=== PATIENT | female | born 1940 | race Caucasian/White ===

== ENCOUNTER 2017-04-28 07:36 | Inpatient (IN) | payer MEDICARE, OTHER ==
[2017-04-28 08:08] LABS: #Basophils 0.1 thou/uL (0.0-0.2); #Lymphocytes 1.9 thou/uL (1.20-3.40); #Monocytes 0.5 thou/uL (0.11-0.59); #Neutrophils 5.1 thou/uL (1.40-6.50); %Basophils 0.8 % (0.0-1.0); %Eosinophils 0.5 % (0.0-10.0); %Lymphocytes 25.5 % (21.0-51.0); %Monocytes 6.3 % (0.0-10.0); Hematocrit 33.2 % (36.0-47.0); Mean Platelet Volume 6.8 fL (7.4-10.4); Red Blood Cell (RBC) Count 3.57 mill/uL (4.20-5.40); White Blood Cell (WBC) Count 7.6 thou/uL (4.8-10.8)
[2017-04-28 08:24] LABS: PTT 31.4 SEC (22.9-36.1); Prothrombin Time 14.9 SEC (12.0-14.7)
[2017-04-28 08:28] LABS: ALT (SGPT) 25 U/L (8-55); AST (SGOT) 30 U/L (5-34); Alkaline Phosphatase 97 U/L (40-150); Anion Gap 16 mmol/L (10-20); BUN (Urea Nitrogen) 11 mg/dL (9.8-20.1); Bilirubin, Total 0.4 mg/dL (0.2-1.2); CK (CPK) 27 U/L (29-168); Calc. Creatinine Clearance 0 mL/min (70-130); Calcium 8.8 mg/dL (7.8-10.44); Carbon Dioxide 20 mmol/L (23-31); Chloride 100 mmol/L (98-107); Estimated GFR-MDRD 82; Globulin 4.1 g/dL (2.4-3.5); Protein, Total 7.1 g/dL (6.0-8.3)
[2017-04-28 08:33] LABS: Troponin I 0.011 ng/mL (< 0.028)
--- NOTE | 2017-04-28 08:54 | RAD ---
CHEST 1 VIEW: Date: 04/28/17 HISTORY: Chest pain. COMPARISON: 12/09/16. FINDINGS: Cardiac silhouette is magnified by projection. Pulmonary vasculature is slightly engorged. Patchy bi basilar infiltrates have increased since the previous exam. Mediastinum is midline with a dual lead left subclavian cardiac electronic device in place. There is no evidence of pneumothorax. IMPRESSION: Mild pulmonary vascular congestion. POS: [facility]
--- NOTE | 2017-04-28 09:24 | CT ---
CT ARTERIOGRAM CHEST WITH IV CONTRAST AND 3D MIP IMAGING: HISTORY: Dyspnea. Chest pain. FINDINGS: There is good contrast opacification of the pulmonary arteries. The thoracic aorta is not yet opacif ied. There is normal branching of the great vessels at the aortic arch. Dilatation of the ascending aorta measures up to 5.0 cm in greatest diameter. There is a small amount of bilateral pleural flui d, left greater than right, and minimal pericardial fluid. Atelectasis is present at the left lung b ase. There is calcification throughout the arterial structures. IMPRESSION: 1. No CT evidence of pulmonary embolus. 2. Ectasia of the ascending aorta. 3. Bilateral pleural effusions. 4. Minimal pericardial effusion. 5. Atherosclerosis. POS: [facility]
[2017-04-28 09:35] LABS: Bilirubin Negative (Negative); Blood, Urine Moderate (Negative); Glucose, Urine (Dipstick) Negative (Negative); Ketone, Urine Negative (Negative); Nitrite Negative (Negative); Protein, Urine (Dipstick) Trace mg/dL (Neg-Trace)
[2017-04-28 09:42] LABS: Bacteria/HPF 1+ HPF (None Seen); Hyaline Casts/LPF 0-3 HYALINE CAST LPF (0-3 Hyaline)
[2017-04-28] MEDS ORDERED: cefTRIAXone\\ROCEPHIN 500 MG VIAL ONE (10:23)
[2017-04-28] MEDS ORDERED: Nitroglycerin 0.4 MG TAB (25 Tab Bottle) ONE (10:43)
[2017-04-28] MEDS ORDERED: Furosemide 40 MG/4 ML VIAL ONE (11:17)
[2017-04-28] MEDS ORDERED: Zolpidem Tartrate 5 MG TAB PO PRN (12:08)
[2017-04-28] MEDS ORDERED: Loperamide HCl 2 MG CAP PO PRN (12:08)
[2017-04-28] MEDS ORDERED: Senokot 8.6 MG TAB PO PRN (12:08)
[2017-04-28] MEDS ORDERED: Acetaminophen 325 MG TAB PO PRN (12:08)
[2017-04-28] MEDS ORDERED: Ondansetron HCl/PF 4 MG/2 ML Vial IVP PRN (12:08)
[2017-04-28] MEDS ORDERED: Mag-Al 1200 mg/1200 mg/30 ML UDCUP PO PRN (12:08)
[2017-04-28] MEDS ORDERED: Ondansetron ODT 4 MG TAB PO PRN (12:08)
[2017-04-28] MEDS ORDERED: Milk Of Magnesia 30 ML UDCUP PO PRN (12:08)
[2017-04-28] MEDS ORDERED: cloNIDine 0.1 MG TAB PO PRN (12:11)
[2017-04-28] MEDS ORDERED: Eucerin (Mineral Oil/Petrolatum,White) 30 gm Jar TOP PRN (12:11)
[2017-04-28] MEDS ORDERED: hydrALAZINE 20 MG/ML VIAL SLOW IVP PRN (12:11)
[2017-04-28] MEDS ORDERED: Labetalol HCl 100 MG/20 ML VIAL SLOW IVP PRN (12:11)
[2017-04-28] MEDS ORDERED: Sodium Chloride 0.65% Nasal 44 ML BOT EA NARE PRN (12:11)
[2017-04-28] MEDS ORDERED: Diabetic Tussin 200 MG/10 ML UDCUP PO PRN (12:11)
[2017-04-28 12:19] LABS: Troponin I 0.016 ng/mL (< 0.028)
[2017-04-28] MEDS ORDERED: ISOVUE-370 76%-LOCM 1 ML ONE (13:15)
--- NOTE | 2017-04-28 14:33 | HP ---
PRIMARY CARE PHYSICIAN: Brandon Villarreal D.O. REASON FOR ADMISSION: Mild CHF chest discomfort and dyspnea. HISTORY OF PRESENT ILLNESS: A 76-year-old female who presented to emergency room with complaint of dyspnea on exertion. Patient also has orthopnea. Patient reports that since Monday she is exper iencing dyspnea on exertion. After walking short distance, she gets out of breath. She has edema i n both lower extremities which is gradually getting worse for the last 2 weeks. Patient reports eliud t she had a stress test done in 11/2016 and she had pacemaker procedure in 08/2016. Patient's physi becca capacity has been reduced since then. Patient denies any fever, chills, or cough. She denies a ny lower extremity calf tenderness. She denies any nausea, vomiting, diaphoresis. Her chest discom fort is pretty much very vague, but she attributes to be due to dyspnea with tightness and there is no radiation. There is no relation of chest discomfort with food, respiration or activity. This patient came to the emergency room today and she was hypertensive. She had CT angio which was negative for pulmonary embolism, but it showed bilateral pleural effusion and minimal pericardial ef fusion. Her BNP was also elevated. At this point, we are admitting this patient for mild CHF exace rbation. REVIEW OF SYSTEMS: The following complete review of systems was negative, unless otherwise mentione d in the HPI or below: Constitutional: Weight loss or gain, ability to conduct usual activities. Skin: Rash, itching. Eyes: Double vision, pain. ENT/Mouth: Nose bleeding, neck stiffness, pain, tenderness. Cardiovascular: Palpitations, dyspnea on exertion, orthopnea. Respiratory: Shortness of breath, wheezing, cough, hemoptysis, fever or night sweats. Gastrointestinal: Poor appetite, abdominal pain, heartburn, nausea, vomiting, constipation, or diar liss. Genitourinary: Urgency, frequency, dysuria, nocturia. Musculoskeletal: Pain, swelling. Neurologic/Psychiatric: Anxiety, depression. Allergy/Immunologic: Skin rash, bleeding tendency. Please see my HPI for pertinent positive and negative. All other review of systems reviewed and neg ative except as mentioned in the HPI. PAST MEDICAL HISTORY: Hypertension, history of third-degree AV block required pacemaker procedure i n 08/2016, and physical deconditioning. PAST SURGICAL HISTORY: Left foot surgery for heel spur, tubal ligation, pacemaker procedure. PAST PSYCHIATRIC HISTORY: History of anxiety and depression, but not on specific treatment. FAMILY HISTORY: Positive for hypertension and diabetes among several family members, positive for h eart disease and stroke among several family members. SOCIAL HISTORY: Patient lives at home. She quit smoking in 2003. She denies any alcohol or other illicit drug abuse. Currently, she lives at [facility]. ALLERGIES: No known drug allergies. CURRENT HOME MEDICATIONS: The patient does not have any medication with her at this point, but base d on our previous discharge summary, the patient is on following medications: Aspirin 81 mg p.o. da tiffanie, vitamin D3 1000 units p.o. daily, lisinopril 10 mg p.o. daily. EMERGENCY ROOM COURSE: Patient was given nitro patch 1 inch, Lasix 40 mg, nitroglycerin 0.4 mg subl ingual, Rocephin 1 g, aspirin 324 mg, IV fluids 500 mL PHYSICAL EXAMINATION: VITAL SIGNS: On arrival, blood pressure variable and maximum of 202/90, pulse 60, respiratory rate 30, temperature 98.4, saturation 95% on room air, weight 99.7 kilograms. GENERAL: Patient is currently alert, awake, hypertensive. No obvious acute distress. HEAD: Normocephalic, atraumatic. EYES: Pupils round, reactive to light. Extraocular muscles intact. ENT: Oropharynx within normal limits. Moist mucous membranes. No oral lesions. No pharyngeal william thema, no exudate. NECK: Supple. Range of motion is normal. No meningeal signs of irritation. LUNGS: Bibasilar few rales noted. Air entry reduced. No wheezing, no rhonchi. No accessory muscl es of respiration in use. CARDIAC: S1 and S2 appears regular. No significant murmur elicited, no gallop, no rub. Pacemaker site is clean and healthy. ABDOMEN: Soft, obesity present, bowel sounds present, nontender, nondistended. No organomegaly, no suprapubic tenderness. BACK: Examination unremarkable, no CVA tenderness. EXTREMITIES: Upper extremity passive movements of all joints are normal. Lower extremity bilateral trace pitting edema noted. Good peripheral pulsation. SKIN: No skin rash. HEMATOLOGICAL SYSTEM: No lymphadenopathy. PSYCHIATRIC: Normal affect. IMAGING AND SIGNIFICANT LABORATORY DATA: 1. EKG showing pacemaker rhythm, nonspecific ST-T changes. 2. CT angio negative for pulmonary embolism, but consistent with bilateral pleural effusion, mild p ericardial effusion, atherosclerosis. 3. CBC: WBC 7.6, hemoglobin 10.4, platelet 1375. INR 1.2. 4. BMP: Sodium 132, potassium 3.7, chloride 100, carbon dioxide 20, BUN 11, creatinine 0.67, gluco se 112, calcium 8.8, magnesium 1.8. 5. LFT: AST 30, ALT 25, alkaline phosphatase 97, albumin 3.0. CK 27, CK-MB 0.6, troponin I 0.011. BNP 792.3. TSH 1.61. 6. Urinalysis consistent with urinary tract infection, though patient does not have any UTI symptom s. 7. Chest x-ray showing pulmonary vascular congestion. ASSESSMENT AND PLAN/IMPRESSION: 1. Acute on chronic diastolic congestive heart failure. This patient has classic history of conges tive heart failure. She has increasing dyspnea on exertion, orthopnea, and bilateral lower extremit y edema along with bilateral small pleural effusion and pericardial effusion with basilar rales and elevated BNP. This patient had echocardiography early this year, which showed EF 55%. Patient does have moderate aortic regurgitation. At this point, suspecting diastolic heart failure. We will no t repeat echocardiography at this time. We will continue to treat with Lasix 40 mg IV b.i.d. We wi ll control underlying blood pressure. We will monitor input/output chart and electrolytes and repla ce accordingly. 2. Chest discomfort. We will do serial cardiac enzymes x3 to rule out acute coronary syndrome, but patient's clinical presentation is not consistent with acute coronary syndrome. 3. Hypertensive urgency. We will continue the nitro patch q.8 hourly, Lasix 40 mg IV b.i.d. and we will also consider using hydralazine, clonidine, and labetalol p.r.n. basis. We will also continue her lisinopril 10 mg p.o. daily. 4. Asymptomatic urinary tract infection. We will continue with Cipro 500 mg p.o. b.i.d. Urine cul tures sent from the emergency room and we will follow up on culture result. 5. Anemia, normocytic, normochromic. We will continue with ferrous sulfate 325 mg p.o. daily and m ultivitamin 1 tablet p.o. daily. 6. Physical deconditioning. We will consult physical therapy evaluation while in hospital. 7. Deep venous thrombosis prophylaxis not needed because we are expecting discharge in 24 hours. 8. Gastrointestinal prophylaxis, Pepcid 20 mg p.o. b.i.d. 9. Code status: The patient is FULL CODE. Patient does not have any surrogate decision maker. DISPOSITION AND PLAN: Based on clinical course.
[2017-04-28 15:49] LABS: Troponin I 0.025 ng/mL (< 0.028)
[2017-04-28] MEDS: Nitroglycerin 2% Ointment 1 INCH/1 GM Packet TOP SCH ×2 (17:49→21:10)
[2017-04-28] MEDS: Furosemide 40 MG/4 ML VIAL SLOW IVP SCH (17:50)
--- NOTE | 2017-04-28 19:52 | CON ---
DATE OF CONSULTATION: 04/28/2017 HISTORY OF PRESENT ILLNESS: The patient is a 76-year-old woman who presents with increasing dyspnea. The patient was seen initially in 08/2016. The patient was in third degree AV block. She had an emergent cardiac pacemaker placed. She was found to have a normally fraction of 55%. The patient presents with increasing dyspnea. She states several days ago she started feeling short of breath. She also noted having mild lower extremity edema. The patient denied having any chest discomfort. PAST MEDICAL HISTORY: 1. Third degree AV block. 2. Hypertension. 3. Status post pacemaker placement. PAST SURGICAL HISTORY: Foot surgery and tubal ligation. SOCIAL HISTORY: She is a nonsmoker. ALLERGIES: No known drug allergies. FAMILY HISTORY: Positive strong family history of coronary artery disease. MEDICATIONS ON ADMISSION: Lisinopril 10 daily, Decadron 4 daily, aspirin 1 tablet daily. REVIEW OF SYSTEMS: Ten-point system noticeable for pain in her left leg. PHYSICAL EXAMINATION: GENERAL: This is an obese woman in no acute distress. VITAL SIGNS: Blood pressure 189/82. NECK: Full. LUNGS: Crackles in both bases. HEART: Regular rate and rhythm, normal S1, S2. ABDOMEN: Nondistended. EXTREMITIES: Showed moderate bilateral edema. SKIN: Warm and dry. NEUROLOGIC: Nonfocal. VASCULAR: Radial pulses are 2+. LABORATORY RESULTS: Sodium is 132, potassium 3.7, chloride 100, bicarbonate 20 , BUN 11, creatinine 0.69, glucose 112. Troponin was 0.016. Her EKG revealed atrial fibrillation with electronic ventricular pacemaker. Interrogation of the pacemaker revealed paroxysmal atrial fibrillation. White blood cell count 7.6, hemoglobin 10.4, hematocrit 33.2 and her platelets were 375. BNP was 792. IMPRESSION: 1. Chest pain, acute, new onset, probably diastolic. 2. Paroxysmal atrial fibrillation. 3. History of pacemaker placement. 4. Dilated aortic root. This patient presents with new onset atrial fibrillation, congestive heart failure. With congestive heart failure, I would recommend that she be placed on Betapace to try to maintain sinus rhythm. The patient will need long-term anticoagulation therapy. She has a markedly elevated CHADS-VAS score. We will follow this patient with you through her hospitalization. PLAN: 1. Start low-dose Betapace. 2. Start Lovenox 1 mg per kilograms subcu b.i.d. 3. Increase lisinopril. MTDD
[2017-04-28] MEDS ORDERED: Ciprofloxacin 500 MG TAB PO SCH (20:00)
[2017-04-28] MEDS ORDERED: Famotidine 20 MG TAB PO SCH (21:00)
[2017-04-28] MEDS: HYDROcodone/Acetaminophen 5/325 mg Tablet PO PRN (21:08)
[2017-04-28] MEDS: Lisinopril 10 MG TAB PO SCH (21:09)
[2017-04-28] MEDS: Sotalol HCl 80 MG TAB PO SCH (21:09)
[2017-04-28] MEDS: Enoxaparin Sodium 100 MG/ML SYRINGE SC SCH (21:10)
[2017-04-29] MEDS: Furosemide 40 MG/4 ML VIAL SLOW IVP SCH ×2 (05:14→13:24)
[2017-04-29] MEDS: Nitroglycerin 2% Ointment 1 INCH/1 GM Packet TOP SCH ×3 (05:14→20:20)
[2017-04-29 05:33] LABS: #Eosinphils 0.1 thou/uL (0.0-0.7); #Lymphocytes 1.5 thou/uL (1.20-3.40); #Monocytes 0.4 thou/uL (0.11-0.59); #Neutrophils 3.9 thou/uL (1.40-6.50); %Basophils 0.1 % (0.0-1.0); %Eosinophils 2.5 % (0.0-10.0); %Lymphocytes 24.6 % (21.0-51.0); %Monocytes 7.2 % (0.0-10.0); Hematocrit 32.5 % (36.0-47.0); Mean Platelet Volume 6.3 fL (7.4-10.4); Red Blood Cell (RBC) Count 3.52 mill/uL (4.20-5.40)
[2017-04-29 05:44] LABS: Anion Gap 9 mmol/L (10-20); BUN (Urea Nitrogen) 12 mg/dL (9.8-20.1); Calc. Creatinine Clearance 101 mL/min (70-130); Calcium 8.5 mg/dL (7.8-10.44); Carbon Dioxide 29 mmol/L (23-31); Chloride 101 mmol/L (98-107); Estimated GFR-MDRD 81; Uric Acid 7.1 mg/dL (2.6-6.0)
[2017-04-29] MEDS ORDERED: Lisinopril 10 MG TAB PO SCH (09:00)
[2017-04-29] MEDS ORDERED: Aspirin 325 MG TAB PO SCH (09:00)
[2017-04-29] MEDS ORDERED: Potassium Chloride 20 MEQ TAB PO SCH (09:30)
[2017-04-29] MEDS: Multivitamin W/ Minerals 1 TAB PO SCH (10:31)
[2017-04-29] MEDS: Sotalol HCl 80 MG TAB PO SCH ×2 (10:32→20:19)
[2017-04-29] MEDS: Ferrous Sulfate 325 MG TAB PO SCH (10:32)
[2017-04-29] MEDS: Lisinopril 10 MG TAB PO SCH ×2 (10:32→20:19)
[2017-04-29] MEDS: Enoxaparin Sodium 100 MG/ML SYRINGE SC SCH ×2 (10:33→20:20)
--- NOTE | 2017-04-29 11:24 | PDOC.PN ---
- Subjective Encounter Start Date: 04/29/17 Encounter Start Time: 07:30 -: old records requested/rev Patient seen and examined. No new complaints. No overnight events, feels better , less dyspnea - Objective MAR Reviewed: Yes Vital Signs & Weight: Vital Signs (12 hours) Temp Pulse Resp BP Pulse Ox 04/29/17 10:32 87 04/29/17 08:35 98 F 87 20 163/72 H 95 04/29/17 04:01 98 04/29/17 04:00 98.2 F 88 16 137/65 97 04/29/17 00:00 98.9 F 63 16 120/58 L 98 Weight Weight 213 lb I&O: 04/28/17 04/29/17 04/30/17 06:59 06:59 05:59 Intake Total 360 Output Total 750 Balance -390 Result Diagrams: 04/29/17 05:12 04/29/17 05:12 Radiology Reviewed by me: Yes EKG Reviewed by me: Yes Phys Exam - Physical Examination Constitutional: NAD HEENT: PERRLA, moist MMs, sclera anicteric Neck: no JVD, supple Respiratory: no wheezing, no rhonchi reduced air entry at base Cardiovascular: RRR, no significant murmur, no rub Gastrointestinal: soft, non-tender, no distention, positive bowel sounds Musculoskeletal: pulses present, edema present improving edema Neurological: non-focal, normal sensation Lymphatic: no nodes Psychiatric: normal affect, A&O x 3 Skin: no rash, normal turgor Dx/Plan (1) Acute on chronic diastolic (congestive) heart failure Code(s): I50.33 - ACUTE ON CHRONIC DIASTOLIC (CONGESTIVE) HEART FAILURE Status : Acute (2) Chest pain Code(s): R07.9 - CHEST PAIN, UNSPECIFIED Status: Acute (3) Physical deconditioning Code(s): R53.81 - OTHER MALAISE Status: Acute (4) UTI (urinary tract infection) Status: Acute (5) Obesity (BMI 30.0-34.9) Code(s): E66.9 - OBESITY, UNSPECIFIED Status: Chronic (6) Pacemaker Code(s): Z95.0 - PRESENCE OF CARDIAC PACEMAKER Status: Chronic (7) Paroxysmal atrial fibrillation Code(s): I48.0 - PAROXYSMAL ATRIAL FIBRILLATION Status: Chronic (8) HTN (hypertension) Code(s): I10 - ESSENTIAL (PRIMARY) HYPERTENSION Status: Chronic (9) History of CVA (cerebrovascular accident) Code(s): Z86.73 - PRSNL HX OF TIA (TIA), AND CEREB INFRC W/O RESID DEFICITS Status: Chronic - Plan cont current plan of care, continue antibiotics * echo done and result pending * continue lovenox * continue diuresis * continue po cipro * medication reviewed as below * symptomatic treatment * monitor labs. Review of Systems - Review of Systems Constitutional: negative: Fever, Chills, Sweats, Weakness, Malaise, Other Eyes: negative: Pain, Vision Change, Conjunctivae Inflammation, Eyelid Inflammation, Redness, Other ENT: negative: Ear Pain, Ear Discharge, Nose Pain, Nose Discharge, Nose Congestion, Mouth Pain, Mouth Swelling, Throat Pain, Throat Swelling, Other Respiratory: Shortness of Breath, SOB with Excertion. negative: Cough, Dry, Hemoptysis, Pleuritic Pain, Sputum, Wheezing Cardiovascular: negative: Chest Pain, Palpitations, Orthopnea, Paroxysmal Noc. Dyspnea, Edema, Light Headedness, Other Gastrointestinal: negative: Nausea, Vomiting, Abdominal Pain, Diarrhea, Constipation, Melena, Hematochezia, Other Genitourinary: negative: Dysuria, Frequency, Incontinence, Hematuria, Retention , Other Musculoskeletal: negative: Neck Pain, Shoulder Pain, Arm Pain, Back Pain, Hand Pain, Leg Pain, Foot Pain, Other - Medications/Allergies Allergies/Adverse Reactions: Allergies Allergy/AdvReac Type Severity Reaction Status Date / Time No Known Allergies Allergy Verified 12/09/16 16:04 Medications: Current Medications Acetaminophen (Tylenol) 650 mg PO Q4H PRN PRN Reason: Headache/Fever or Pain Hydrocodone Bitart/Acetaminophen ([place] 5/325) 1 tab PO Q4H PRN PRN Reason: Moderate Pain (4-6) Last Admin: 04/28/17 21:08 Dose: 1 tab Al Hydroxide/Mg Hydroxide (Maalox) 30 ml PO Q6H PRN PRN Reason: Heartburn or Indigestion Aspirin (Aspirin Chewable) 81 mg PO DAILY [facility] Last Admin: 04/29/17 10:32 Dose: 81 mg Clonidine (Catapres) 0.1 mg PO Q4H PRN PRN Reason: Systolic BP > 180 Last Admin: 04/28/17 17:47 Dose: 0.1 mg Enoxaparin Sodium (Lovenox) 95 mg SC 0900,2100 [facility] Last Admin: 04/29/17 10:33 Dose: 95 mg Ferrous Sulfate (Feosol) 325 mg PO QAM-[facility] Last Admin: 04/29/17 10:32 Dose: 325 mg Furosemide (Lasix) 40 mg SLOW IVP 0600,1400 [facility] Last Admin: 04/29/17 05:14 Dose: 40 mg Guaifenesin (Robitussin Sf) 200 mg PO Q4H PRN PRN Reason: Cough Hydralazine HCl (Apresoline) 10 mg SLOW IVP Q4H PRN PRN Reason: Systolic BP > 180 Iron/Minerals/Multivitamins (Theragran M) 1 tab PO DAILY [facility] Last Admin: 04/29/17 10:31 Dose: 1 tab Labetalol HCl (Normodyne) 20 mg SLOW IVP Q4H PRN PRN Reason: Systolic BP > 180 Lisinopril (Zestril) 10 mg PO BID [facility] Last Admin: 04/29/17 10:32 Dose: 10 mg Loperamide HCl (Imodium) 2 mg PO PRN PRN PRN Reason: Diarrhea/Loose Stools Magnesium Hydroxide (Milk Of Magnesium) 30 ml PO DAILYPRN PRN PRN Reason: Constipation Mineral Oil/White Petrolatum (Eucerin Cream) 0 gm TOP BIDPRN PRN PRN Reason: Dry Skin Nitroglycerin (Nitro-Bid 2% Ointment) 0.5 inch TOP Q8HR [facility] Last Admin: 04/29/17 05:14 Dose: 0.5 inch Ondansetron HCl (Zofran Odt) 4 mg PO Q6H PRN PRN Reason: Nausea/Vomiting Ondansetron HCl (Zofran) 4 mg IVP Q6H PRN PRN Reason: Nausea/Vomiting Potassium Chloride (K-Dur) 20 meq PO BID-[facility] Potassium Chloride (K-Dur) 20 meq PO NOW [facility] Stop: 04/29/17 11:30 Last Admin: 04/29/17 10:30 Dose: 20 meq Senna (Senokot) 2 tab PO HSPRN PRN PRN Reason: Constipation Sodium Chloride ([place] Nasal [place] 0.65%) 0 ml EA NARE QIDPRN PRN PRN Reason: Nasal Congestion Sotalol HCl (Betapace) 80 mg PO BID [facility] Last Admin: 04/29/17 10:32 Dose: 80 mg Zolpidem Tartrate (Ambien) 5 mg PO HSPRN PRN PRN Reason: Insomnia
[2017-04-29] MEDS: Potassium Chloride 20 MEQ TAB PO SCH (16:46)
[2017-04-29 18:21] VITALS: BMI 33.2
[2017-04-29] MEDS: HYDROcodone/Acetaminophen 5/325 mg Tablet PO PRN (20:18)
[2017-04-30] MEDS: HYDROcodone/Acetaminophen 5/325 mg Tablet PO PRN ×2 (01:13→20:36)
[2017-04-30] MEDS ORDERED: ADENOSINE 60 MG/20 ML VIAL ONE (01:49)
[2017-04-30] MEDS: Furosemide 40 MG/4 ML VIAL SLOW IVP SCH ×2 (06:01→13:59)
[2017-04-30] MEDS: Nitroglycerin 2% Ointment 1 INCH/1 GM Packet TOP SCH ×3 (06:01→20:37)
--- NOTE | 2017-04-30 09:54 | PDOC.PN ---
- Subjective Encounter Start Date: 04/30/17 Encounter Start Time: 09:15 Patient seen and examined. No new complaints. No overnight events - Objective MAR Reviewed: Yes Vital Signs & Weight: Vital Signs (12 hours) Temp Pulse Resp BP Pulse Ox 04/30/17 04:54 97.7 F 64 20 127/61 97 04/30/17 04:07 95 04/30/17 04:00 97.7 F 64 16 127/61 97 04/30/17 00:00 97.4 F L 85 18 130/60 95 Weight Admit Weight 214 lb Weight 207 lb 4.8 oz I&O: 04/29/17 04/30/17 05/01/17 07:59 06:59 06:59 Intake Total Output Total Balance Result Diagrams: 04/29/17 05:12 04/29/17 05:12 Radiology Reviewed by me: Yes (echo ) EKG Reviewed by me: Yes Phys Exam - Physical Examination Constitutional: NAD HEENT: PERRLA, moist MMs, sclera anicteric Neck: no JVD, supple Respiratory: no wheezing, no rales, no rhonchi Cardiovascular: RRR, no significant murmur, no rub Gastrointestinal: soft, non-tender, no distention, positive bowel sounds Musculoskeletal: no edema, pulses present Neurological: non-focal, normal sensation Lymphatic: no nodes Psychiatric: normal affect Skin: no rash, normal turgor Dx/Plan (1) Acute on chronic diastolic (congestive) heart failure Code(s): I50.33 - ACUTE ON CHRONIC DIASTOLIC (CONGESTIVE) HEART FAILURE Status : Acute (2) Chest pain Code(s): R07.9 - CHEST PAIN, UNSPECIFIED Status: Acute (3) Physical deconditioning Code(s): R53.81 - OTHER MALAISE Status: Acute (4) UTI (urinary tract infection) Status: Acute (5) Obesity (BMI 30.0-34.9) Code(s): E66.9 - OBESITY, UNSPECIFIED Status: Chronic (6) Pacemaker Code(s): Z95.0 - PRESENCE OF CARDIAC PACEMAKER Status: Chronic (7) Paroxysmal atrial fibrillation Code(s): I48.0 - PAROXYSMAL ATRIAL FIBRILLATION Status: Chronic (8) HTN (hypertension) Code(s): I10 - ESSENTIAL (PRIMARY) HYPERTENSION Status: Chronic (9) History of CVA (cerebrovascular accident) Code(s): Z86.73 - PRSNL HX OF TIA (TIA), AND CEREB INFRC W/O RESID DEFICITS Status: Chronic - Plan cont current plan of care, continue antibiotics * continue lovenox * today plan for stress test * continue oral cipro for UTI * medication reviewed as below * symptomatic treatment * will plan for discharge tomorrow if stable. * continue diuresis Review of Systems - Review of Systems ENT: negative: Ear Pain, Ear Discharge, Nose Pain, Nose Discharge, Nose Congestion, Mouth Pain, Mouth Swelling, Throat Pain, Throat Swelling, Other Respiratory: negative: Cough, Dry, Shortness of Breath, Hemoptysis, SOB with Excertion, Pleuritic Pain, Sputum, Wheezing Cardiovascular: negative: Chest Pain, Palpitations, Orthopnea, Paroxysmal Noc. Dyspnea, Edema, Light Headedness, Other Gastrointestinal: negative: Nausea, Vomiting, Abdominal Pain, Diarrhea, Constipation, Melena, Hematochezia, Other Genitourinary: negative: Dysuria, Frequency, Incontinence, Hematuria, Retention , Other Musculoskeletal: negative: Neck Pain, Shoulder Pain, Arm Pain, Back Pain, Hand Pain, Leg Pain, Foot Pain, Other Skin: negative: Rash, Lesions, Evaristo, Bruising, Other - Medications/Allergies Allergies/Adverse Reactions: Allergies Allergy/AdvReac Type Severity Reaction Status Date / Time No Known Allergies Allergy Verified 12/09/16 16:04 Medications: Current Medications Acetaminophen (Tylenol) 650 mg PO Q4H PRN PRN Reason: Headache/Fever or Pain Hydrocodone Bitart/Acetaminophen ([place] 5/325) 1 tab PO Q4H PRN PRN Reason: Moderate Pain (4-6) Last Admin: 04/30/17 01:13 CDT Dose: 1 tab Al Hydroxide/Mg Hydroxide (Maalox) 30 ml PO Q6H PRN PRN Reason: Heartburn or Indigestion Aspirin (Aspirin Chewable) 81 mg PO DAILY [facility] Last Admin: 04/29/17 10:32 Dose: 81 mg Clonidine (Catapres) 0.1 mg PO Q4H PRN PRN Reason: Systolic BP > 180 Last Admin: 04/28/17 17:47 Dose: 0.1 mg Enoxaparin Sodium (Lovenox) 95 mg SC 0900,2100 [facility] Last Admin: 04/29/17 20:20 Dose: 95 mg Ferrous Sulfate (Feosol) 325 mg PO QAM-[facility] Last Admin: 04/29/17 10:32 Dose: 325 mg Furosemide (Lasix) 40 mg SLOW IVP 0600,1400 [facility] Last Admin: 04/30/17 06:01 Dose: 40 mg Guaifenesin (Robitussin Sf) 200 mg PO Q4H PRN PRN Reason: Cough Hydralazine HCl (Apresoline) 10 mg SLOW IVP Q4H PRN PRN Reason: Systolic BP > 180 Iron/Minerals/Multivitamins (Theragran M) 1 tab PO DAILY [facility] Last Admin: 04/29/17 10:31 Dose: 1 tab Labetalol HCl (Normodyne) 20 mg SLOW IVP Q4H PRN PRN Reason: Systolic BP > 180 Lisinopril (Zestril) 10 mg PO BID [facility] Last Admin: 04/29/17 20:19 Dose: 10 mg Loperamide HCl (Imodium) 2 mg PO PRN PRN PRN Reason: Diarrhea/Loose Stools Magnesium Hydroxide (Milk Of Magnesium) 30 ml PO DAILYPRN PRN PRN Reason: Constipation Mineral Oil/White Petrolatum (Eucerin Cream) 0 gm TOP BIDPRN PRN PRN Reason: Dry Skin Nitroglycerin (Nitro-Bid 2% Ointment) 0.5 inch TOP Q8HR [facility] Last Admin: 04/30/17 06:01 Dose: Not Given Ondansetron HCl (Zofran Odt) 4 mg PO Q6H PRN PRN Reason: Nausea/Vomiting Ondansetron HCl (Zofran) 4 mg IVP Q6H PRN PRN Reason: Nausea/Vomiting Potassium Chloride (K-Dur) 20 meq PO BID-[facility] Last Admin: 04/29/17 16:46 Dose: 20 meq Senna (Senokot) 2 tab PO HSPRN PRN PRN Reason: Constipation Sodium Chloride ([place] Nasal [place] 0.65%) 0 ml EA NARE QIDPRN PRN PRN Reason: Nasal Congestion Sotalol HCl (Betapace) 80 mg PO BID [facility] Last Admin: 04/29/17 20:19 Dose: 80 mg Zolpidem Tartrate (Ambien) 5 mg PO HSPRN PRN PRN Reason: Insomnia
[2017-04-30] MEDS ORDERED: Ciprofloxacin 500 MG TAB PO SCH (10:15)
[2017-04-30] MEDS: Ferrous Sulfate 325 MG TAB PO SCH (10:53)
[2017-04-30] MEDS: Potassium Chloride 20 MEQ TAB PO SCH ×2 (10:54→16:38)
[2017-04-30] MEDS: Sotalol HCl 80 MG TAB PO SCH ×2 (10:54→20:38)
[2017-04-30] MEDS: Enoxaparin Sodium 100 MG/ML SYRINGE SC SCH (10:57)
[2017-04-30] MEDS: Lisinopril 10 MG TAB PO SCH ×2 (10:57→20:38)
[2017-04-30] MEDS: Multivitamin W/ Minerals 1 TAB PO SCH (10:57)
--- NOTE | 2017-04-30 13:58 | NM ---
MYOCARDIAL PERFUSION STUDY: HISTORY: 04/30/17 HISTORY: CHF. Post pacemaker insertion. Hypertension. RADIOPHARMACEUTICALS: 31.1 mCi technetium-99m sestamibi, IV at stress. 28.2 mCi technetium-99m sestamibi, IV at rest. FINDINGS: There is a very small area of mild diminished uptake of radiotracer seen within the ventricular apex with suggestion of reversibility on resting images. No additional significant reversible defect is id entified. Quantitative analysis shows no significant reversible defect within the ventricular apex. G ated images demonstrate normal ventricular wall thickening, but there is mild hypokinesis involving t he ventricular septum with dyskinesis involving the distal anteroseptal wall. The calculated left francine tricular ejection fraction is at the lower limits of normal with a LVEF of 53%. IMPRESSION: 1. Equivocal myocardial perfusion study for a very small area of ischemia seen within the ventricula r apex, but this may be related to motion artifact and shifting soft tissue attenuation between the r esting and stress acquisitions as there does appear to be motion artifact. No additional area of reve rsibility is seen to suggest ischemia. 2. Mild hypokinesis involving the septum with mild dyskinesis involving the distal anteroseptal wall . 3. Low normal LVEF of 53%. POS: [facility]
[2017-04-30] MEDS ORDERED: Cipro 250 MG TAB PO SCH (20:00)
[2017-04-30] MEDS: Ciprofloxacin 500 MG TAB PO SCH (20:38)
[2017-04-30] MEDS ORDERED: Enoxaparin Sodium 100 MG/ML SYRINGE SC SCH (21:00)
[2017-05-01] MEDS ORDERED: Iopamidol 370 76% 100 ML VIAL ONE ×2 (00:12→14:05)
[2017-05-01] MEDS: HYDROcodone/Acetaminophen 5/325 mg Tablet PO PRN ×2 (04:22→09:20)
[2017-05-01] MEDS: Nitroglycerin 2% Ointment 1 INCH/1 GM Packet TOP SCH ×2 (04:24→15:00)
[2017-05-01] MEDS: Furosemide 40 MG/4 ML VIAL SLOW IVP SCH ×2 (04:24→15:00)
[2017-05-01] MEDS: Ciprofloxacin 500 MG TAB PO SCH (04:24)
[2017-05-01] MEDS ORDERED: Communication Order-Pharmacy FS SCH (08:15)
--- NOTE | 2017-05-01 08:36 | PRG ---
DATE OF SERVICE: 05/01/2017 HISTORY OF PRESENT ILLNESS: Ms. Ramires is feeling better. She presented with congestive heart fail ure. She also had atrial fibrillation which is felt to be new onset. She was placed on Betapace ov er the weekend. PHYSICAL EXAMINATION: VITAL SIGNS: Blood pressure 137/58, pulse 72, temperature 98.2. LUNGS: Clear to auscultation. CARDIAC: Irregular, irregular. ABDOMEN: Soft, nontender, nondistended. EXTREMITIES: No edema. Telemetry monitoring shows paced rhythm. IMPRESSION: 1. Atrial fibrillation. 2. Shortness of breath. 3. Status post pacemaker placement. RECOMMENDATIONS: Ms. Ramires did have an equivocal stress study suggesting ischemia in a small area. At this point, would like to proceed with coronary angiography. This may help delineate treatment options for antiarrhythmic therapy. There is a risk of torsades on Betapace. I would not like to commit her to amiodarone therapy. Would like to assess her coronary anatomy. I discussed coronary angiography in full detail with Ms. Ramires. Risks included, but are not limited to the following: , stroke, MT, need for emergency surgery, loss of limb, bleeding, and infection, as well as a reaction to the dye causing kidney failure and needing long-term dialysis. I also discussed the ris ks of PCI to include all of the above including coronary dissection and perforation in addition to a cute stent thrombosis and restenosis. All questions about the procedure were answered. Given the a magnus, the patient agreed to proceed with coronary angiography and possible PCI. All questions were answered. We will proceed with a bare metal stent if needed given her need for a nticoagulation therapy.
[2017-05-01] MEDS ORDERED: Nitroglycerin 0.4 MG TAB (25 Tab Bottle) SL PRN (08:49)
[2017-05-01] MEDS ORDERED: traMADol HCl 50 MG TAB PO PRN (08:49)
[2017-05-01] MEDS ORDERED: Acetaminophen/Codeine 30-300mg Tablet PO PRN ×2 (08:49)
[2017-05-01] MEDS ORDERED: Sodium Chloride 0.9% 200 ML IV SCH (09:00)
[2017-05-01] MEDS ORDERED: Sodium Chloride 0.9% 1,000 ML IV SCH (09:00)
[2017-05-01] MEDS ORDERED: Flecainide 50 MG TAB PO SCH (09:00)
[2017-05-01] MEDS: Ferrous Sulfate 325 MG TAB PO SCH (09:22)
[2017-05-01] MEDS: Lisinopril 10 MG TAB PO SCH (09:23)
[2017-05-01] MEDS: Potassium Chloride 20 MEQ TAB PO SCH (09:23)
[2017-05-01] MEDS: Multivitamin W/ Minerals 1 TAB PO SCH (09:24)
[2017-05-01 12:22] VITALS: BP 136/65; TEMP 97.9
--- NOTE | 2017-05-01 13:22 | DIS ---
DATE OF ADMISSION: 04/28/2017 DATE OF DISCHARGE: 05/01/2017 PRIMARY CARE PHYSICIAN: Dr. Brandon Villarreal. DISCHARGE DISPOSITION: Home. PRIMARY DISCHARGE DIAGNOSES: 1. Acute on chronic diastolic congestive heart failure. 2. New onset paroxysmal atrial fibrillation. 3. Status post cardiac catheterization. SECONDARY DISCHARGE DIAGNOSES: Hypertension, history of CVA, paroxysmal atrial fibrillation, pacema ker, obesity with BMI 32, moderate mitral regurgitation, urinary tract infection, physical deconditi oning. PRIMARY PROCEDURE/OPERATION: Cardiac catheterization. RADIOLOGICAL INVESTIGATION: CT angio showed bilateral pleural effusion and no evidence of pulmonary embolism. Chest x-ray showed pulmonary vascular congestion, stress test suspected for reversibilit y ischemia in apex. Echocardiography showed diastolic dysfunction and moderate mitral regurgitation . Cardiac catheterization was unremarkable. SIGNIFICANT LABS: Hemoglobin 10.3, INR 1.2, creatinine 0.70. Cardiac enzymes negative. BNP 792.3, TSH 1.61. Urinalysis suggestive of UTI. Blood culture negative. DISCHARGE MEDICATIONS: Eliquis 5 mg p.o. b.i.d., aspirin 81 mg p.o. daily, vitamin D3 1000 units p. o. daily, Cipro 500 mg p.o. b.i.d. for 5 days, ferrous sulfate 325 mg p.o. daily, flecainide 50 mg p .o. b.i.d., lisinopril 10 mg p.o. b.i.d., multivitamin 1 tablet p.o. daily. CONTRAINDICATIONS: None. CODE STATUS: FULL CODE. INPATIENT CONSULTANTS: Dr. Mendoza and Dr. Ramon were following while in hospital. TEST RESULTS PENDING ON DISCHARGE: None. ALLERGIES: No known drug allergy. DISCHARGE PLAN: Post hospital, the patient will follow up with Dr. Brandon Villarreal and the patient will follow up with Dr. Mendoza on 05/09/2017 at 9:15 a.m. Patient will follow up with Heart Failure [facility]oval amaro. HOSPITAL COURSE: A 76-year-old female with above-mentioned medical problem who was admitted by me. Please see my HPI for further details. The patient was having increasing shortness of breath. Her chest x-ray was showing pulmonary vascular congestion. Her CT angio was showing bilateral pleural effusion. She was also complaining of chest pain, but she did not have any pulmonary embolism. Her cardiac enzymes were negative. In the emergency room, she had 1 episode of atrial fibrillation. T he patient was admitted to telemetry floor. Dr. Ramon was following while in hospital. Patient' s status was inpatient on admission. The patient was treated with IV Lasix while in hospital. Her blood pressure medication was adjusted as above. The patient underwent stress test that was positive for reversible ischemia at apex. Th e patient subsequently underwent cardiac catheterization and cardiac angiography was unremarkable. Echocardiography confirmed diastolic dysfunction with moderate mitral regurgitation. Necessary heart failure education given to the patient. Dietary education given. The patient is no w euvolemic. The patient is advised to take Lasix 20 mg p.o. daily. The patient also had asymptomatic urinary tract infection, which was treated with ciprofloxacin whil e in hospital. On discharge, we changed to Eliquis therapy. While in hospital, she was given Loven ox. The patient is also given Tambocor on discharge. The patient is seen and examined at bedside today. Plan of care [facility] with the [facility] I spoke with Dr. Mendoza and he also cleared her for discharge. PHYSICAL EXAMINATION: The patient is seen and examined at bedside today. VITAL SIGNS: Currently, temperature 97.9, pulse 67, respiratory rate 18, saturation 98%, blood pres sure 136/65, weight 207 pounds. GENERAL: The patient is currently alert, awake, in no acute distress. HEAD: Normocephalic, atraumatic. LUNGS: Clear. CARDIAC: S1, S2 regular without any murmur. ABDOMEN: Soft, benign. EXTREMITIES: No edema. Catheter cardiac catheter site is clear. Distal pulsation is intact. NEUROLOGIC: Nonfocal examination. All new medication prescriptions sent to her pharmacy. The patient is medically stable for discharg e today. Total time spent on discharge day more than 30 minutes.
[2017-05-01] MEDS ORDERED: Apixaban 5 MG TAB PO SCH (21:00)
--- NOTE | 2017-06-16 10:01 | STRESS ---
Acquisition Time: 2017-04-30 08:47:47 Total Exercise Time: 00:04:00 Test Indications: CHEST PAIN Medications: Protocol: ADENOSINE Max HR: 100 BPM 70% of Pred: 142 BPM Max BP: 142/064 mmHG Max Work Load: 1.0 METS THE PATIENT WAS INJECTED WITH ADENOSINE. SHE DID NOT DEVELOP CHEST PAIN. THE PATIENT WAS IN A PACED RHYTHM. AWAIT NUCLEAR IMAGES FOR DEFINITIVE DIAGNOSIS. Confirmed by TAVON TOURE ([id number]), non linear editor SALVADOR GARCIA ([id number]) on 06/16/2017 10:01:17 AM Referred By: MD Remigio TOURE Confirmed By:TAVON TOURE
--- NOTE | 2017-06-24 10:39 | EKG ---
Test Reason : CP Blood Pressure : / mmHG Vent. Rate : 060 BPM Atrial Rate : 061 BPM P-R Int : 000 ms QRS Dur : 158 ms QT Int : 510 ms P-R-T Axes : 000 -62 099 degrees QTc Int : 510 ms Electronic ventricular pacemaker Confirmed by LUBNA CAMPBELL M.D. ([id number]), editorial assistant DEAN MATHIAS ([id number]) on 06/24/2017 10:39:02 AM Referred By: Confirmed By:LUBNA CAMPBELL M.D.
--- NOTE | 2017-06-24 10:39 | EKG ---
Test Reason : Blood Pressure : / mmHG Vent. Rate : 085 BPM Atrial Rate : 100 BPM P-R Int : 000 ms QRS Dur : 158 ms QT Int : 422 ms P-R-T Axes : 000 -57 099 degrees QTc Int : 502 ms Electronic ventricular pacemaker Confirmed by LUBNA CAMPBELL M.D. ([id number]), senior technical editor DEAN MATHIAS ([id number]) on 06/24/2017 10:38:57 AM Referred By: Confirmed By:LUBNA CAMPBELL M.D.
== END 2017-05-01 15:33 | disposition home or self-care (01) | DRG 287 ==
LOC: ERS 07:36 → ERHOLD 10:40 → 2NO 13:50 → OBSVTOIN 20:35
PROVIDERS: ADMIT Internal Medicine; ATTEND Internal Medicine
PROC: 4A023N7 Measurement of Cardiac Sampling and Pressure, Left Heart, Percutaneous Approach (ICD-10-PCS; principal; 2017-05-01)
PROC: B2111ZZ Fluoroscopy of Multiple Coronary Arteries using Low Osmolar Contrast (ICD-10-PCS; 2017-05-01)
PROC: B2151ZZ Fluoroscopy of Left Heart using Low Osmolar Contrast (ICD-10-PCS; 2017-05-01)
DX: I11.0 Hypertensive heart disease with heart failure (principal); I31.3 Pericardial effusion (noninflammatory); N39.0 Urinary tract infection, site not specified; Z87.891 Personal history of nicotine dependence; Z98.51 Tubal ligation status; Z95.0 Presence of cardiac pacemaker; I50.33 Acute on chronic diastolic (congestive) heart failure; I16.0 Hypertensive urgency; Z86.73 Personal history of transient ischemic attack (TIA), and cerebral infarction without residual deficits; I08.0 Rheumatic disorders of both mitral and aortic valves; D64.9 Anemia, unspecified; I48.0 Paroxysmal atrial fibrillation; E66.9 Obesity, unspecified; Z68.32 Body mass index [BMI] 32.0-32.9, adult; I77.819 Aortic ectasia, unspecified site
CPT/HCPCS: 36415; 71010; 71275; 76942; 78452; 80048; 80053; 81003; 81015; 82553; 83735; 83880; 84443; 84484; 84550; 85025; 85610; 85730; 87040; 93005; 93017; 93306; 93458; 93798; 96361; 96374; 96375; A4216; A9500; C1760; C1769; G8978-GP-CI; G8979-GP-CI; G8980-GP-CI; J0153; J0696; J1644; J1650; J1940

== ENCOUNTER 2018-08-20 14:12 | Observation (INO) | payer MEDICARE, OTHER ==
[2018-08-20 14:54] LABS: #Eosinphils 0.1 thou/uL (0.0-0.7); #Monocytes 0.7 thou/uL (0.11-0.59); %Basophils 0.1 % (0.0-1.0); %Eosinophils 0.3 % (0.0-10.0); %Lymphocytes 5.3 % (21.0-51.0); %Monocytes 3.9 % (0.0-10.0); %Neutrophils 90.4 % (42.0-75.0); Hemoglobin 12.6 g/dL (12.0-16.0); Mean Corpuscular HGB CONC 32.3 g/dL (32.0-36.0); Mean Corpuscular Hemoglobin 32.2 pg (27.0-31.0); Mean Corpuscular Volume 99.8 fL (78.0-98.0); Mean Platelet Volume 6.1 fL (7.4-10.4); Platelet Count 299 thou/uL (130-400); RBC Distribution Width 12.6 % (11.5-14.5); Red Blood Cell (RBC) Count 3.91 mill/uL (4.20-5.40); White Blood Cell (WBC) Count 18.8 thou/uL (4.8-10.8)
--- NOTE | 2018-08-20 15:05 | RAD ---
CHEST 1 VIEW: Date: 08/20/18 INDICATION: Syncope. COMPARISON: Prior exam dated 05/25/17. FINDINGS: There is stable mild cardiomegaly and dual lead pacemaker. Chronic lung changes are stable. No acute air space opacity, pleural effusion, or pneumothorax is evident. IMPRESSION: No acute abnormality. POS: [facility]
[2018-08-20 15:10] LABS: ALT (SGPT) Less than 7 U/L (8-55); AST (SGOT) 11 U/L (5-34); Albumin 3.7 g/dL (3.4-4.8); Alkaline Phosphatase 91 U/L (40-150); Anion Gap 16 mmol/L (10-20); BUN (Urea Nitrogen) 14 mg/dL (9.8-20.1); Bilirubin, Total 0.2 mg/dL (0.2-1.2); Calc. Creatinine Clearance 0 mL/min (70-130); Calcium 9.2 mg/dL (7.8-10.44); Carbon Dioxide 23 mmol/L (23-31); Chloride 97 mmol/L (98-107); Estimated GFR-MDRD 66; Globulin 3.4 g/dL (2.4-3.5); Glucose 142 mg/dL (83-110); Potassium 5.3 mmol/L (3.5-5.1); Protein, Total 7.1 g/dL (6.0-8.3); Sodium 131 mmol/L (136-145)
--- NOTE | 2018-08-20 15:36 | CT ---
HEAD CT NONCONTRAST: Date: 08/20/18 COMPARISON: 12/08/16. INDICATION: Syncope. FINDINGS: There is mild global atrophy. Mild chronic ischemic disease of cerebral white matter is present. Ther e is no intracranial hemorrhage, mass effect, midline shift, or ventriculomegaly. IMPRESSION: No acute intracranial abnormalities. POS: [facility]
[2018-08-20] MEDS ORDERED: Guaifenesin DM 100-10/5 ML UDCUP PO PRN (17:57)
[2018-08-20] MEDS ORDERED: Senokot S 8.6-50 MG TAB PO PRN (17:57)
[2018-08-20] MEDS ORDERED: Ondansetron PF 4 MG/2 ML Vial IVP PRN (17:57)
[2018-08-20] MEDS ORDERED: Acetaminophen 650 MG Suppository PR PRN (17:57)
[2018-08-20] MEDS ORDERED: Ondansetron ODT 4 MG TAB PO PRN (17:57)
[2018-08-20 19:47] VITALS: BMI 31.4
[2018-08-20] MEDS: Flecainide 50 MG TAB PO SCH (21:10)
[2018-08-20] MEDS: Aspirin Chewable 81 MG TAB PO SCH (21:11)
[2018-08-20] MEDS: Famotidine 20 MG TAB PO SCH (21:11)
[2018-08-20] MEDS: Apixaban 5 MG TAB PO SCH (21:11)
[2018-08-20] MEDS: Docusate 100 MG CAP PO SCH (21:11)
[2018-08-20] MEDS ORDERED: Lisinopril 20 MG TAB PO SCH (21:15)
[2018-08-20] MEDS: Lisinopril 20 MG TAB PO SCH (21:20)
[2018-08-20] MEDS: Acetaminophen 325 MG TAB PO PRN (22:48)
[2018-08-20 23:15] LABS: Bilirubin Negative (Negative); Blood, Urine Small (Negative); Clarity CLEAR (Clear); Glucose, Urine (Dipstick) Negative (Negative); Leukocyte Moderate (Negative); Nitrite Negative (Negative); Protein, Urine (Dipstick) Negative (Neg-Trace); Specific Gravity, Urine 1.012 (1.002-1.036)
[2018-08-20 23:17] LABS: Bacteria/HPF None Seen HPF (None Seen); Hyaline Casts/LPF 0-3 HYALINE CAST LPF (0-3 Hyaline)
--- NOTE | 2018-08-21 00:10 | HP ---
PRIMARY CARE PHYSICIAN: Brandon Villarreal DO CHIEF COMPLAINT: Syncope. HISTORY OF PRESENT ILLNESS: This is a 77-year-old white female with a past medical history of atrial fibrillation and heart block with pacemaker. She lives at [facility], was playing cards with some of her friends there. She suddenly felt dizzy while she was sitting there, was not under any stress or excited about anything at that time and then passed out. She does not remember anything until the ambulance got there and they were moving her into the ambulance when she came back to. She came back immediately, has not had any confusion since, no focal neurologic signs either. She has never had this happen before. She has been feeling normal up until the syncopal episode. PAST MEDICAL HISTORY: 1. Hypertension. 2. History of third-degree AV block, requiring pacemaker. 3. Paroxysmal atrial fibrillation, on Eliquis. 4. Diastolic congestive heart failure. PAST SURGICAL HISTORY: 1. Left foot surgery for heel spur. 2. Tubal ligation. 3. Pacemaker placement. PAST PSYCHIATRIC HISTORY: 1. Anxiety. 2. Depression. SOCIAL HISTORY: The patient lives at [place] at [facility] and she quit smoking in 2003. No alcohol or illicit drug use. FAMILY HISTORY: Positive for hypertension, diabetes, heart disease, and stroke. ALLERGIES: NO KNOWN DRUG ALLERGIES. CURRENT MEDICATIONS: 1. Lasix uncertain dose. 2. Eliquis 5 mg twice a day. 3. Lisinopril 20 mg daily. REVIEW OF SYSTEMS: CONSTITUTIONAL: No fevers. She did have a few episodes of chills about 2 weeks ago while she was lying down for a nap, but it has not repeated since then. EYES: No double vision or blurred vision. ENT: No congestion, drainage, or sore throat. CARDIOVASCULAR: No chest pain. No palpitations or racing heart. PULMONARY: No coughing, wheezing, or shortness of breath. GASTROINTESTINAL: No abdominal pain. No nausea or vomiting. No diarrhea. She does have chronic constipation. GENITOURINARY: No dysuria or hematuria. MUSCULOSKELETAL: She has chronic left lower extremity pain in her thigh and knee and some chronic swelling in the left lower leg more than the right ever since her congestive heart failure diagnosis a couple of years ago. SKIN: No rashes or other lesions she has noted. NEUROLOGIC: No numbness, tingling, or focal weakness. She had a syncopal episode as per the HPI. PHYSICAL EXAMINATION: VITAL SIGNS: Blood pressure 113/56, pulse 86, respirations 17, temperature 97.8, and O2 saturation 96% on room air. GENERAL: This is a well-developed, well-nourished white female, in no acute distress. HEENT: Pupils are equal, round, and reactive to light. Oropharynx clear without lesions, erythema, or exudate. NECK: Supple. No lymphadenopathy. No thyroid nodules or enlargement. No JVD. HEART: Regular rate and rhythm. No murmurs, rubs, or gallops. LUNGS: Clear to auscultation bilaterally. No wheezes, crackles, or rhonchi. ABDOMEN: Soft, nontender to palpation. Normoactive bowel sounds. No hepatosplenomegaly or other masses. EXTREMITIES: No clubbing, cyanosis, or edema. SKIN: No rashes or other lesions noted. NEUROLOGIC: The patient has intact strength and sensation in all extremities. She has no facial droop. She has good coordination. PSYCHIATRIC: Alert and oriented x3. Normal mood and affect. LABORATORY DATA: White blood cell count elevated at 18,000 and 90% neutrophils. The rest of the CBC was normal. Complete metabolic panel notable for sodium of 131, potassium of 5.3, chloride of 97, and glucose of 142. Her brain issue peptide was 195. Troponin was negative x1. CT of the brain done in the emergency room shows no acute intracranial abnormalities. Chest x-ray, I did review the chest x-ray in the emergency room along with the radiologist's report, there is stable cardiomegaly and dual lead pacemaker. No acute abnormalities noted. ASSESSMENT: 1. Syncope. Symptoms are consistent with cardiogenic syncope with the sudden onset of dizziness followed by the syncope without any preceding Valsalva maneuvers, eating or defecation. She was also not standing at that times. It does not sound orthostatic. We will have [employer] evaluate her pacemaker and will consult Dr. Ramon, who will put the patient on potline monitor and observe overnight. If she does well overnight, has normal telemetry monitoring, and her pacemaker interrogation is negative, she can probably discharge home tomorrow. 2. Leukocytosis. The patient does not have any symptoms of infection. We will get a urinalysis to make sure she does not have underlying urinary tract infection. We will hold any antibiotics for now. We will recheck in the morning. 3. Elevated potassium without any known source. She is not on any potassium per her med list. I will recheck this as well in the morning. We will continue her Lasix for now at 40 mg twice a day, which is what she was on the last time when she was in the hospital. 4. Paroxysmal atrial fibrillation, currently in paced rhythm. We will continue the patient's Eliquis and watch her on the monitor. 5. Hypertension. We will resume the patient's home lisinopril. 6. Gastrointestinal prophylaxis. We will put the patient on Pepcid twice a day. 7. Deep venous thrombosis prophylaxis. Continue the patient's Eliquis. CODE STATUS: I did discuss with the patient she is a do not attempt resuscitation. Should she be incapacitated, her niece to be her medical decision maker, her name is Nelly Corea. Job ID: [id number]
[2018-08-21 05:50] LABS: #Eosinphils 0.1 thou/uL (0.0-0.7); #Lymphocytes 1.7 thou/uL (1.20-3.40); #Monocytes 0.5 thou/uL (0.11-0.59); #Neutrophils 4.4 thou/uL (1.40-6.50); %Basophils 0.6 % (0.0-1.0); %Eosinophils 1.4 % (0.0-10.0); %Lymphocytes 25.5 % (21.0-51.0); %Monocytes 6.8 % (0.0-10.0); %Neutrophils 65.8 % (42.0-75.0); Hemoglobin 11.8 g/dL (12.0-16.0); Mean Corpuscular HGB CONC 32.3 g/dL (32.0-36.0); Mean Corpuscular Volume 99.1 fL (78.0-98.0); Mean Platelet Volume 6.7 fL (7.4-10.4); Platelet Count 277 thou/uL (130-400); RBC Distribution Width 12.6 % (11.5-14.5); Red Blood Cell (RBC) Count 3.69 mill/uL (4.20-5.40); White Blood Cell (WBC) Count 6.7 thou/uL (4.8-10.8)
[2018-08-21 05:54] LABS: Anion Gap 12 mmol/L (10-20); BUN (Urea Nitrogen) 11 mg/dL (9.8-20.1); Calc. Creatinine Clearance 94 mL/min (70-130); Calcium 9.2 mg/dL (7.8-10.44); Carbon Dioxide 23 mmol/L (23-31); Chloride 101 mmol/L (98-107); Estimated GFR-MDRD 81; Glucose 74 mg/dL (83-110); Potassium 4.5 mmol/L (3.5-5.1); Sodium 131 mmol/L (136-145)
[2018-08-21] MEDS: Furosemide 40 MG TAB PO SCH ×2 (06:40→15:18)
[2018-08-21] MEDS ORDERED: Furosemide 40 MG TAB PO SCH (09:00)
[2018-08-21] MEDS ORDERED: Lisinopril 20 MG TAB PO SCH (09:00)
[2018-08-21] MEDS: Famotidine 20 MG TAB PO SCH ×2 (09:22→20:27)
[2018-08-21] MEDS: Multivitamin W/ Minerals 1 TAB PO SCH (09:22)
[2018-08-21] MEDS: Flecainide 50 MG TAB PO SCH ×2 (09:22→20:27)
[2018-08-21] MEDS: Apixaban 5 MG TAB PO SCH ×2 (09:22→20:27)
[2018-08-21] MEDS: Docusate 100 MG CAP PO SCH ×2 (09:22→20:27)
[2018-08-21] MEDS: Acetaminophen 325 MG TAB PO PRN ×2 (10:45→23:12)
--- NOTE | 2018-08-21 15:58 | CON ---
DATE OF CONSULTATION: REASON FOR CONSULTATION: Syncope. HISTORY OF PRESENT ILLNESS: Ms. Ramires is a 77-year-old woman, who recently had a syncopal episode. She states she had no predisposing factors. She was playing cards and passed out. Next thing she knows she was waking up in the ambulance. No chest pain or pressure, shortness of breath, or other associated symptoms. Previous echo dated 04/2017 with LVEF 50% to 55%. Mild to moderate aortic insufficiency present. PAST MEDICAL HISTORY: Status post pacemaker for sick sinus syndrome and atrial fibrillation. ALLERGIES: NONE. HOME MEDICATIONS: Include; 1. Vitamin D3. 2. Aspirin. 3. Centrum Silver. 4. Lasix. 5. Eliquis. 6. Lisinopril. 7. Flecainide. REVIEW OF SYSTEMS: As above. PHYSICAL EXAMINATION: VITAL SIGNS: Blood pressure 111/58, pulse 96, and temperature 97.6. GENERAL: Patient is a pleasant female, who is in no acute distress. The patient appears their stated age. NEUROLOGIC: The patient is alert and oriented x3 with no focal neurologic deficits. HEENT: Sclerae without icterus. Mouth has moist mucous membranes with normal pallor. NECK: No JVD. Carotid upstroke brisk. No bruits bilaterally. LUNGS: Clear to auscultation with unlabored respirations. BACK: No scoliosis or kyphosis. CARDIAC: Regular rate and rhythm with normal S1 and S2. No S3 or S4 noted. No significant rubs, murmurs, thrills, or gallops noted throughout the precordium. PMI is not displaced. There is no parasternal heave. ABDOMEN: Soft, nontender, nondistended. No peritoneal signs present. No hepatosplenomegaly. No abnormal striae. EXTREMITIES: 2+ femoral and 2+ dorsalis pedis pulses. No cyanosis, clubbing, or edema. SKIN: No gross abnormalities. PERTINENT LABORATORY DATA: Hemoglobin 11.8. Creatinine 0.7. Pacemaker interrogated and reviewed by myself showed no significant dysrhythmia is present and normal functioning pacemaker. IMPRESSION: 1. Syncope. 2. Atrial fibrillation. RECOMMENDATIONS: From the CV standpoint, there is no clear etiology to her syncopal episode. Her LVEF has been stable in the past. We would recommend repeating her echo. Her pacemaker appears stable. I would seek a noncardiac cause. Did discuss the case with Dr. Matthew Mckeon, if her LVEF appears normal from a CV standpoint, will be okay from my standpoint to discharge home. Job ID: [id number]
--- NOTE | 2018-08-21 16:03 | PDOC.PN ---
- Subjective Encounter Start Date: 08/21/18 Encounter Start Time: 11:30 Ms. Ramires was seen today in follow-up of syncopal episode. She does not have any complaints this morning and says she feels " fine". - Objective Resuscitation Status - Order Detail: 08/20/18 17:51 Resuscitation Status Routine Resuscitation Status: DNAR: NO Resuscitation Discussed with: Patient MAR Reviewed: Yes Vital Signs & Weight: Vital Signs (12 hours) Temp Pulse Resp BP BP BP Pulse Ox 08/21/18 11:19 97.6 F 96 16 111/58 L 98 08/21/18 07:08 97.7 F 96 16 126/66 124/64 124/63 97 Weight Weight 200 lb 8 oz I&O: 08/20/18 08/21/18 08/22/18 06:59 06:59 06:59 Intake Total 300 Output Total 1250 Balance -950 Result Diagrams: 08/21/18 04:48 08/21/18 04:48 Phys Exam - Physical Examination HEENT: PERRLA Respiratory: no wheezing, no rales, no rhonchi, clear to auscultation bilateral Cardiovascular: RRR, no significant murmur, no rub Gastrointestinal: soft, non-tender, no distention, positive bowel sounds Musculoskeletal: pulses present, edema present + swelling in the left upper thigh Neurological: non-focal Dx/Plan (1) Syncope Code(s): R55 - SYNCOPE AND COLLAPSE Status: Acute (2) Chronic diastolic heart failure Code(s): I50.32 - CHRONIC DIASTOLIC (CONGESTIVE) HEART FAILURE Status: Chronic (3) HTN (hypertension) Code(s): I10 - ESSENTIAL (PRIMARY) HYPERTENSION Status: Chronic (4) Pacemaker Code(s): Z95.0 - PRESENCE OF CARDIAC PACEMAKER Status: Chronic (5) Paroxysmal atrial fibrillation Code(s): I48.0 - PAROXYSMAL ATRIAL FIBRILLATION Status: Chronic - Plan * Syncope- ? etiology- Cardiology recommendations were noted- will follow-up with Echo results * Left leg swelling- the patient tells me this has been present every since she had the pacemaker placed about a year ago. there is now redness or warmth to the area. * PAF- her heart rate is stable * HTN- blood pressure is stable * Chronic diastolic heart failure- compensated
[2018-08-21] MEDS: Lisinopril 20 MG TAB PO SCH (20:27)
[2018-08-21] MEDS: Aspirin Chewable 81 MG TAB PO SCH (20:27)
[2018-08-22] MEDS: Docusate 100 MG CAP PO SCH (07:59)
[2018-08-22] MEDS: Multivitamin W/ Minerals 1 TAB PO SCH (08:00)
[2018-08-22] MEDS: Apixaban 5 MG TAB PO SCH (08:00)
[2018-08-22] MEDS: Flecainide 50 MG TAB PO SCH (08:00)
[2018-08-22] MEDS: Furosemide 40 MG TAB PO SCH ×2 (08:00→13:44)
[2018-08-22] MEDS: Famotidine 20 MG TAB PO SCH (08:00)
--- NOTE | 2018-08-22 10:43 | PDOC.PN ---
- Subjective Encounter Start Date: 08/22/18 Encounter Start Time: 10:41 Ms. Ramires was seen today in follow-up of syncope. She does not have any complaints today. There has been no more syncopal episodes, or pre-syncope. - Objective Resuscitation Status - Order Detail: 08/20/18 17:51 Resuscitation Status Routine Resuscitation Status: DNAR: NO Resuscitation Discussed with: Patient MAR Reviewed: Yes Vital Signs & Weight: Vital Signs (12 hours) Temp Pulse Resp BP BP Pulse Ox 08/22/18 07:13 97.8 F 72 16 121/56 L 99 08/22/18 04:00 97.9 F 98 16 102/57 L 95 08/21/18 23:12 98.0 F 95 16 120/64 98 Weight Weight 196 lb 1.6 oz I&O: 08/21/18 08/22/18 08/23/18 06:59 06:59 06:59 Intake Total 300 1430 Output Total 1250 2800 Balance -950 -1370 Result Diagrams: 08/21/18 04:48 08/21/18 04:48 Phys Exam - Physical Examination HEENT: PERRLA Respiratory: no wheezing, no rales, no rhonchi, clear to auscultation bilateral Cardiovascular: RRR, no significant murmur, no rub Gastrointestinal: soft, non-tender, positive bowel sounds Musculoskeletal: no edema, pulses present Dx/Plan (1) Syncope Code(s): R55 - SYNCOPE AND COLLAPSE Status: Acute (2) Chronic diastolic heart failure Code(s): I50.32 - CHRONIC DIASTOLIC (CONGESTIVE) HEART FAILURE Status: Chronic (3) HTN (hypertension) Code(s): I10 - ESSENTIAL (PRIMARY) HYPERTENSION Status: Chronic (4) Pacemaker Code(s): Z95.0 - PRESENCE OF CARDIAC PACEMAKER Status: Chronic (5) Paroxysmal atrial fibrillation Code(s): I48.0 - PAROXYSMAL ATRIAL FIBRILLATION Status: Chronic - Plan * Syncope- ? etiology- still awaiting the Echo * Chronic diastolic heart failure- compensated * AFIB- stable * Home later today- may need to follow-up with the Echo results as an outpatient.
[2018-08-22 12:08] VITALS: TEMP 97.7
[2018-08-22 15:51] VITALS: BP 105/54
--- NOTE | 2018-08-22 16:05 | PRG ---
DATE OF SERVICE: SUBJECTIVE: Ms. Ramires is doing well. No current complaints. Overall, LVEF was estimated at 40% to 45%. She had no recurrent episodes overnight. OBJECTIVE: VITAL SIGNS: Blood pressure 102/57, pulse 72, and temperature 97.8. LUNGS: Clear to auscultation. HEART: Regular rate and rhythm. ABDOMEN: Soft, nontender, and nondistended. EXTREMITIES: No edema. IMPRESSION: Syncope. RECOMMENDATIONS: Ms. Ramires's overall LVEF does appear mildly diminished, likely secondary to a pacer. I do not feel associated with the dysrhythmia. Her pacemaker had no significant dysrhythmias. From my standpoint, it will be okay to discharge home with close outpatient followup. Job ID: [id number]
--- NOTE | 2018-08-23 03:54 | DIS ---
DATE OF ADMISSION: 08/20/2018 DATE OF DISCHARGE: 08/22/2018 PRIMARY CARE PHYSICIAN: Brandon Villarreal DO DISCHARGE DISPOSITION: Home. PRIMARY DISCHARGE DIAGNOSES: 1. Syncope, unknown cause. 2. Hypertension. 3. History of third-degree AV block, status post pacemaker. 4. Paroxysmal atrial fibrillation. 5. Chronic diastolic heart failure. DISCHARGE MEDICATIONS: Include: 1. Eliquis 5 mg twice daily. 2. Theragran-M one tablet daily. 3. Lisinopril 20 mg at bedtime. 4. Furosemide 40 mg daily. 5. Flecainide 50 mg twice a day. 6. Vitamin D3 of 1000 units at bedtime. 7. Aspirin 81 mg at bedtime. PROCEDURES DONE DURING ADMISSION: The patient had an echocardiogram in which the ejection fraction was noted to be 40% to 45%. There was some dyskinesia of the septum likely from the pacer. CODE STATUS: Do not resuscitate. ALLERGIES: NO KNOWN DRUG ALLERGIES. HOSPITAL COURSE: Ms. Ramires is a pleasant 77-year-old female, who lives at [facility]. She was visiting with friends when she had a syncopal episode. She was brought into the hospital and placed in observation. She underwent an echocardiogram, as well as she was monitored on telemetry. Her pacer was interrogated. There was no significant underlying arrhythmias seen on the pacemaker and her echo showed a slightly low ejection fraction but after discussion with Dr. Mendoza, he felt this could be due to the pacer which could be adjusted. Otherwise, no other etiology was found for her syncope and she was discharged home in stable condition to have close outpatient followup. Job ID: [id number]
== END 2018-08-22 16:15 | disposition home or self-care (01) ==
LOC: ERS 14:12 → ERHOLD 16:36 → 2SW 19:37
PROVIDERS: ADMIT Emergency Medicine; ATTEND Emergency Medicine
DX: R55 Syncope and collapse (principal); D72.829 Elevated white blood cell count, unspecified; I48.0 Paroxysmal atrial fibrillation; I11.0 Hypertensive heart disease with heart failure; I50.32 Chronic diastolic (congestive) heart failure; F41.9 Anxiety disorder, unspecified; F32.9 Major depressive disorder, single episode, unspecified; Z66 Do not resuscitate; Z79.01 Long term (current) use of anticoagulants; Z79.82 Long term (current) use of aspirin; Z79.899 Other long term (current) drug therapy; Z87.891 Personal history of nicotine dependence; Z95.0 Presence of cardiac pacemaker
CPT/HCPCS: 70450; 71045; 80048; 80053; 83880; 84484 ×2; 85025 ×2; 93005; 93306; 97139 ×2; 99285; G0378 ×2; 36415; 81003; 81015

== ENCOUNTER 2019-01-04 11:08 | Outpatient (CLI) | payer MEDICARE, OTHER ==
--- NOTE | 2019-01-04 12:24 | RAD ---
SINGLE VIEW CHEST AND LEFT RIB SERIES: Date: 01/04/19 COMPARISON: None. HISTORY: Left rib pain after falling off a toilet with chest trauma. FINDINGS: Single view of the chest and multiple views of the left ribs were performed. There is a normal sized cardiomediastinal silhouette. There is a pacemaker with leads in the right atrium and ventricle. Ther e is no evidence of consolidation, mass, or pleural effusion. Multiple views of the left ribs show no evidence of displaced left rib fracture. No underlying pleura l thickening or pneumothorax seen. IMPRESSION: No evidence of left rib fracture. POS: [facility]
== END 2019-01-04 11:09 | disposition home or self-care (01) ==
LOC: BICRAD 11:08
PROVIDERS: ATTEND Family Medicine
DX: I50.32 Chronic diastolic (congestive) heart failure (principal); R07.81 Pleurodynia; Z95.0 Presence of cardiac pacemaker

== ENCOUNTER 2019-05-07 14:06 | Outpatient (CLI) | payer MEDICARE, OTHER ==
--- NOTE | 2019-05-07 15:12 | ULT ---
EXAM: US Thyroid STANDARD PROVIDED CLINICAL HISTORY: Thyroid nodule seen on thyroid ultrasound examination performed in physician's office. COMPARISON: None FINDINGS: The right lobe of the thyroid gland measures 4.9 cm x 1.8 cm x 1.8 cm with the left lobe measuring 5. 2 cm x 1.9 cm x 1.9 cm. The thyroid isthmus measures 0.2 cm in AP dimensions. There are innumerable hypoechoic and slightly heterogeneous nodules in each lobe of the thyroid gland all of which measure less than 1 cm. The largest nodule in the midportion right lobe of the thyroid gland measures 0.7 cm with largest nodule in the left lobe of the thyroid gland in the superi or pole measuring 0.6 cm. IMPRESSION: TI RADS level 4, multinodular thyroid gland. Thyroid nodules all measure less than 1 cm. According to ACR white paper guidelines, no additional follow-up or fine-needle aspiration is warranted.
== END 2019-05-07 14:07 | disposition home or self-care (01) ==
LOC: BICULT 14:06
PROVIDERS: ATTEND Internal Medicine Cardiovascular Disease
DX: E04.2 Nontoxic multinodular goiter (principal)
CPT/HCPCS: 76536

== ENCOUNTER 2020-02-25 10:49 | Emergency (ER) | payer MEDICARE, OTHER ==
--- NOTE | 2020-02-25 11:36 | RAD ---
EXAM: Single view of the chest HISTORY: Dizziness COMPARISON: 02/04/2020 FINDINGS: Single view of the chest shows an enlarged but stable cardiomediastinal silhouette. The pa cemaker is unchanged in position. There is a stable left pleural effusion with adjacent atelectasis Degenerative changes are seen in the spine. IMPRESSION: Left pleural effusion with adjacent atelectasis
[2020-02-25 11:47] LABS: Bacteria/HPF 2+ HPF (None Seen); Bilirubin Negative (Negative); Blood, Urine Trace (Negative); Clarity Turbid (Clear); Glucose, Urine (Dipstick) Normal (Negative); Ketone, Urine Negative (Negative); Leukocyte Negative Leu/uL (Negative); Nitrite Negative (Negative); Protein, Urine (Dipstick) Negative (Neg-Trace); RBC/HPF 0-3 HPF (0-3); Squamous Epithelial 0-3 HPF (0-3); Urobilinogen Normal mg/dL (Less than 2); pH, Urine 7.5 (5.0-9.0)
[2020-02-25 11:58] LABS: #Eosinphils 0.1 thou/uL (0.0-0.7); #Monocytes 0.5 thou/uL (0.11-0.59); #Neutrophils 5.3 thou/uL (1.40-6.50); %Basophils 0.3 % (0.0-1.0); %Eosinophils 1.9 % (0.0-10.0); %Lymphocytes 14.6 % (21.0-51.0); %Monocytes 6.7 % (0.0-10.0); %Neutrophils 76.5 % (42.0-75.0); Mean Corpuscular HGB CONC 30.8 g/dL (32.0-36.0); Mean Corpuscular Hemoglobin 26.7 pg (27.0-31.0); Mean Corpuscular Volume 86.6 fL (78.0-98.0); Mean Platelet Volume 6.8 fL (7.4-10.4); Platelet Count 324 thou/uL (130-400); RBC Distribution Width 18.2 % (11.5-14.5); Red Blood Cell (RBC) Count 4.51 mill/uL (4.20-5.40); White Blood Cell (WBC) Count 6.9 thou/uL (4.8-10.8)
[2020-02-25 12:20] LABS: ALT (SGPT) 14 U/L (8-55); AST (SGOT) 22 U/L (5-34); Albumin 2.9 g/dL (3.4-4.8); Alkaline Phosphatase 95 U/L (40-110); Anion Gap 14 mmol/L (10-20); BUN (Urea Nitrogen) 15 mg/dL (9.8-20.1); Bilirubin, Total 0.9 mg/dL (0.2-1.2); Calc. Creatinine Clearance 0 mL/min (70-130); Calcium 8.3 mg/dL (7.8-10.44); Carbon Dioxide 31 mmol/L (23-31); Chloride 88 mmol/L (98-107); Estimated GFR-MDRD 72; Globulin 3.4 g/dL (2.4-3.5); Glucose 111 mg/dL (83-110); Potassium 3.4 mmol/L (3.5-5.1); Protein, Total 6.3 g/dL (6.0-8.3); Sodium 130 mmol/L (136-145)
== END 2020-02-25 15:18 ==
LOC: ERS 10:49
DX: R53.1 Weakness (principal); R11.0 Nausea; I11.0 Hypertensive heart disease with heart failure; I50.9 Heart failure, unspecified; Z87.891 Personal history of nicotine dependence; Z79.899 Other long term (current) drug therapy
CPT/HCPCS: 36415; 51701; 71045; 80053; 81003; 81015; 83880; 84484; 85025; 93005

== ENCOUNTER 2020-03-25 14:56 | Inpatient (IN) | payer MEDICARE, OTHER ==
[~2020-03-25 14:56] MED LIST: Iopamidol-370 76% 500 ML 1 ML ONE
[2020-03-25] MEDS ORDERED: Furosemide 40 MG/4 ML VIAL ONE (15:25)
--- NOTE | 2020-03-25 15:43 | RAD ---
EXAM: Single view of the chest HISTORY: Labored breathing and chest pain COMPARISON: 02/25/2020 FINDINGS: Single view of the chest shows an enlarged cardiomediastinal silhouette. The pacemaker is unchanged in position. There is a moderate left pleural effusion with adjacent atelectasis versus infiltrate. No acute osseous abnormality. IMPRESSION: Moderate left pleural effusion with adjacent atelectasis versus infiltrate
[2020-03-25 15:56] LABS: #Eosinphils 0.1 thou/uL (0.0-0.7); #Lymphocytes 1.3 thou/uL (1.20-3.40); #Monocytes 0.3 thou/uL (0.11-0.59); #Neutrophils 3.3 thou/uL (1.40-6.50); %Basophils 0.6 % (0.0-1.0); %Eosinophils 1.5 % (0.0-10.0); %Lymphocytes 26.7 % (21.0-51.0); %Monocytes 5.4 % (0.0-10.0); %Neutrophils 65.7 % (42.0-75.0); Hemoglobin 11.3 g/dL (12.0-16.0); Mean Corpuscular HGB CONC 30.8 g/dL (32.0-36.0); Mean Corpuscular Hemoglobin 27.3 pg (27.0-31.0); Mean Corpuscular Volume 88.7 fL (78.0-98.0); Mean Platelet Volume 7.1 fL (7.4-10.4); Platelet Count 291 thou/uL (130-400); RBC Distribution Width 20.1 % (11.5-14.5); Red Blood Cell (RBC) Count 4.13 mill/uL (4.20-5.40)
[2020-03-25 16:18] LABS: ALT (SGPT) Less than 7 U/L (8-55); AST (SGOT) 10 U/L (5-34); Albumin 2.9 g/dL (3.4-4.8); Alkaline Phosphatase 85 U/L (40-110); Anion Gap 12 mmol/L (10-20); BUN (Urea Nitrogen) 10 mg/dL (9.8-20.1); Bilirubin, Total 0.9 mg/dL (0.2-1.2); CK (CPK) 35 U/L (29-168); Calc. Creatinine Clearance 0 mL/min (70-130); Calcium 8.5 mg/dL (7.8-10.44); Carbon Dioxide 25 mmol/L (23-31); Chloride 100 mmol/L (98-107); Estimated GFR-MDRD 71; Globulin 3.9 g/dL (2.4-3.5); Glucose 105 mg/dL (83-110); Lipase 28 U/L (8-78); Potassium 4.1 mmol/L (3.5-5.1); Protein, Total 6.8 g/dL (6.0-8.3); Sodium 133 mmol/L (136-145)
[2020-03-25 17:17] LABS: Bacteria/HPF 2+ HPF (None Seen); Bilirubin Negative (Negative); Blood, Urine Trace (Negative); Clarity Clear (Clear); Glucose, Urine (Dipstick) Normal (Negative); Ketone, Urine Negative (Negative); Leukocyte Negative Leu/uL (Negative); Nitrite Negative (Negative); Protein, Urine (Dipstick) Negative (Neg-Trace); RBC/HPF 0-3 HPF (0-3); Specific Gravity, Urine 1.006 (1.002-1.036); Squamous Epithelial 0-3 HPF (0-3); Urobilinogen Normal mg/dL (Less than 2); WBC/HPF 0-3 HPF (0-3); pH, Urine 6.5 (5.0-9.0)
--- NOTE | 2020-03-25 18:19 | CT ---
CT PULMONARY ANGIOGRAM WITH IV CONTRAST AND 3-D POSTPROCESSING: HISTORY:Elevated d-dimer FINDINGS: There is good contrast opacification of the pulmonary arterial vasculature without filling defects to suggest pulmonary embolism. 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 There is a large left and a moderate right pleural effusion with adjacent atelectatic changes. There is a groundglass filtrate in the posterior aspect of the left upper lobe no pneumothoraces are seen. There are degenerative changes in the spine. Upper abdominal tomograms are unremarkable. IMPRESSION: 1. No CT evidence of pulmonary embolism. 2. Bilateral pleural effusions, left larger than right. 3. Stable thoracic aortic aneurysm since 2016
[2020-03-25] MEDS ORDERED: Nitroglycerin 2% Ointment 1 INCH/1 GM Packet ONE (19:01)
[2020-03-25] MEDS ORDERED: Amlodipine 5 MG TAB ONE (19:38)
[2020-03-25] MEDS ORDERED: Acetaminophen 650 MG Suppository PR PRN (19:43)
[2020-03-25] MEDS ORDERED: Acetaminophen 325 MG TAB PO PRN (19:43)
--- NOTE | 2020-03-25 20:16 | PDOC.HHP ---
Hospitalist HPI - History of Present Illness Chest pressure and sob History of Present Illness: Patient states she was home and being tended to by the home health nurse when she was noted to be breathing heavily. She states she had a pressure in the center of her chest which was a 3/10 in severity. She states it was nonradiating and caused her to breath heavier. The pain lasted for about an hour. She has a known history of CHF and is under the care of Dr. Mendoza who she states she has been communicating with via phone frequently. He is not aware that she took herself off of her lasix a month ago. The reason was because she felt unsafe getting in and out of bed to urinate through the night. She requires a walked to get around her home and a scooter for long distances. She was afraid she could end up falling. She had an Echo done on 07/2018 with an ejection fraction 40% to 45% noted. There was some dyskinesia of the septum felt to be associated with her pacer. ROS: Patient states she has felt well in recent days. Reports a weight loss of 40 lbs in the last 6 months and in the last month since stopping Lasix has gained 10 lbs. Denies any fever, chills or sweats. No cough or hemoptysis. No n/v or abdominal pain. No bowel changes or urinary symptoms. Reports lower leg swelling which she states has been worse recently and was aware it was due to f luid retention after stopping her lasix. Did not have any chest pain until today. All other review of systems are negative. ED COURSE: She was brought by EMS from [facility]. She was noted to be hypertensive and gave her SL Nitro x 2, and 1 inch of nitro paste. She states her pain had settled on arrival and is pain free at the moment. Her BP has remained elevated in the 190s systolic. She was given another inch of nitro paste while in the ED. Also given Lasix 40 mg IV x 1 and Aspirin 324 mg. Labs were notable for an elevated D-Dimer therefore a CTA was done showing no evidence of PE. Troponin was negative. BNP 935.8. UA showed 2+ bacteria and trace blood. Otherwise unremarkable. Patient persistently hypertensive and given Amlodipine 5 mg PO x 1, BP without any significant improvement. She was given Labetalol 5 mg IV. PAST MEDICAL HISTORY: 1. Chronic diastolic HF. 2. Essential hypertension. 3. Cardiac pacemaker. 4. Paroxysmal Afib, on Eliquis. 5. History of third-degree AV block, requiring pacemaker. 6. Anxiety. 7. Depression. PAST SURGICAL HISTORY: 1. Left foot surgery for heel spur. 2. Tubal ligation. 3. Pacemaker placement. SOCIAL HISTORY: The patient lives at [facility] and she quit smoking in 2003. No alcohol or illicit drug use. FAMILY HISTORY: Positive for hypertension, diabetes, heart disease, and stroke. ALLERGIES: NO KNOWN DRUG ALLERGIES. CURRENT MEDICATIONS: 1. Lasix 40 mg a day, has been off of it for a month. 2. Eliquis 5 mg twice a day. 3. Lisinopril 20 mg daily. 4. Flecainide 50 mg twice a day. 5. Furosemide 40 mg a day. - Exam General Appearance: NAD General - other findings: BP: 192/92, Pulse: 60, Resp: 18, Pain: 0, O2 sat: 99 on (1L Oxygen), Hospitalist Results - Labs Result Diagrams: 03/25/20 13:42 03/25/20 13:42 Lab results: WBC 5.0 thou/uL (4.8-10.8) 03/25/20 13:42 Hgb 11.3 g/dL (12.0-16.0) L 03/25/20 13:42 Hct 36.7 % (36.0-47.0) 03/25/20 13:42 MCV 88.7 fL (78.0-98.0) 03/25/20 13:42 Plt Count 291 thou/uL (130-400) 03/25/20 13:42 Neutrophils % 65.7 % (42.0-75.0) 03/25/20 13:42 Sodium 133 mmol/L (136-145) L 03/25/20 13:42 Potassium 4.1 mmol/L (3.5-5.1) 03/25/20 13:42 Chloride 100 mmol/L (98-107) 03/25/20 13:42 Carbon Dioxide 25 mmol/L (23-31) 03/25/20 13:42 BUN 10 mg/dL (9.8-20.1) 03/25/20 13:42 Creatinine 0.78 mg/dL (0.6-1.1) 03/25/20 13:42 Glucose 105 mg/dL (83-110) 03/25/20 13:42 Calcium 8.5 mg/dL (7.8-10.44) 03/25/20 13:42 Total Bilirubin 0.9 mg/dL (0.2-1.2) 03/25/20 13:42 AST 10 U/L (5-34) 03/25/20 13:42 ALT Less than 7 U/L (8-55) L 03/25/20 13:42 Alkaline Phosphatase 85 U/L (40-110) 03/25/20 13:42 Creatine Kinase 35 U/L (29-168) 03/25/20 13:42 Troponin I Less than 0.010 ng/mL (< 0.028) 03/25/20 13:42 B-Natriuretic Peptide 935.8 pg/mL (0-100) H 03/25/20 13:42 Serum Total Protein 6.8 g/dL (6.0-8.3) 03/25/20 13:42 Albumin 2.9 g/dL (3.4-4.8) L 03/25/20 13:42 Lipase 28 U/L (8-78) 03/25/20 13:42 Urine Ketones Negative mg/dL (Negative) 03/25/20 16:45 Urine Blood Trace (Negative) A 03/25/20 16:45 Urine Nitrite Negative (Negative) 03/25/20 16:45 Ur Leukocyte Esterase Negative Sri/uL (Negative) 03/25/20 16:45 Urine RBC 0-3 HPF (0-3) 03/25/20 16:45 Urine WBC 0-3 HPF (0-3) 03/25/20 16:45 Ur Squamous Epith Cells 0-3 HPF (0-3) 03/25/20 16:45 Urine Bacteria 2+ HPF (None Seen) A 03/25/20 16:45 Hospitalist H&P A/P - Problem (1) Chest pain Code(s): R07.9 - CHEST PAIN, UNSPECIFIED Status: Acute Assessment and Plan: No pain at present, has resolved with Nitro and ASA. Continue aspirin. Cardiac monitoring. Continue to trend troponins, initial troponin negative. EKG: Paced rhythm. Interrogate pacemaker. (2) CHF exacerbation Code(s): I50.9 - HEART FAILURE, UNSPECIFIED Status: Chronic Assessment and Plan: Continue Lasix and monitor renal function. Echo ordered. HF management, cardiac rehab and peer health promoter consult placed. Fluid restriction. (3) Hypertensive urgency Code(s): I16.0 - HYPERTENSIVE URGENCY Status: Chronic Assessment and Plan: Continue to monitor BP. Labetalol 5 mg IV x 1. Remains asymptomatic. (4) HTN (hypertension) Code(s): I10 - ESSENTIAL (PRIMARY) HYPERTENSION Status: Chronic Assessment and Plan: Monitor BP and reconcile home medications as appropriate once verified. (5) Thoracic aortic aneurysm (TAA) Code(s): I71.2 - THORACIC AORTIC ANEURYSM, WITHOUT RUPTURE Status: Chronic (6) Pacemaker Code(s): Z95.0 - PRESENCE OF CARDIAC PACEMAKER Status: Chronic Assessment and Plan: Interrogate pacemaker. (7) Paroxysmal atrial fibrillation Code(s): I48.0 - PAROXYSMAL ATRIAL FIBRILLATION Status: Chronic Assessment and Plan: Resume Eliquis. Cardiac monitoring. (8) Anxiety and depression Code(s): F41.9 - ANXIETY DISORDER, UNSPECIFIED; F32.9 - MAJOR DEPRESSIVE DISORDER, SINGLE EPISODE, UNSPECIFIED Status: Chronic - Plan Plan: Surrogate decision maker is her Niece KATHY HOUSTON (NIECE): [phone].
[2020-03-25] MEDS ORDERED: Labetalol HCl 100 MG/20 ML VIAL ONE (20:29)
[2020-03-25] MEDS ORDERED: Amlodipine 5 MG TAB PO SCH (20:45)
[2020-03-25] MEDS ORDERED: Flecainide 50 MG TAB PO SCH (20:45)
[2020-03-26] MEDS ORDERED: hydrALAZINE 25 MG TAB PO SCH ×4 (04:30→16:00)
[2020-03-26 04:57] LABS: #Eosinphils 0.1 thou/uL (0.0-0.7); #Lymphocytes 1.1 thou/uL (1.20-3.40); #Monocytes 0.3 thou/uL (0.11-0.59); #Neutrophils 4.1 thou/uL (1.40-6.50); %Basophils 0.2 % (0.0-1.0); %Eosinophils 1.4 % (0.0-10.0); %Lymphocytes 19.5 % (21.0-51.0); %Monocytes 5.5 % (0.0-10.0); %Neutrophils 73.4 % (42.0-75.0); Hemoglobin 11.3 g/dL (12.0-16.0); Mean Corpuscular HGB CONC 30.2 g/dL (32.0-36.0); Mean Corpuscular Hemoglobin 26.8 pg (27.0-31.0); Mean Corpuscular Volume 88.6 fL (78.0-98.0); Mean Platelet Volume 7.3 fL (7.4-10.4); Platelet Count 302 thou/uL (130-400); RBC Distribution Width 20.3 % (11.5-14.5); White Blood Cell (WBC) Count 5.6 thou/uL (4.8-10.8)
[2020-03-26 05:26] LABS: Anion Gap 13 mmol/L (10-20); BUN (Urea Nitrogen) 11 mg/dL (9.8-20.1); Calc. Creatinine Clearance 68 mL/min (70-130); Calcium 8.2 mg/dL (7.8-10.44); Carbon Dioxide 26 mmol/L (23-31); Cardiac Risk 4.4 (Less than 4.5); Chloride 98 mmol/L (98-107); Cholesterol 120 mg/dl (< 200 Desired); Estimated GFR-MDRD 69; Glucose 152 mg/dL (83-110); HDL Cholesterol 27 mg/dL (>60 Neg Risk); LDL Cholesterol, Calculated 73 mg/dL; Potassium 3.6 mmol/L (3.5-5.1); Sodium 133 mmol/L (136-145); Triglycerides 98 mg/dL (Less than 150)
[2020-03-26] MEDS ORDERED: hydrALAZINE 20 MG/ML VIAL SLOW IVP PRN (07:55)
[2020-03-26] MEDS ORDERED: Furosemide 40 MG/4 ML VIAL SLOW IVP SCH (08:30)
[2020-03-26] MEDS: Flecainide 50 MG TAB PO SCH ×2 (10:24→20:13)
[2020-03-26] MEDS: Apixaban 5 MG TAB PO SCH ×2 (10:24→20:13)
[2020-03-26 11:29] LABS: Hemoglobin 11.1 g/dL (12.0-16.0); Platelet Count 289 thou/uL (130-400)
[2020-03-26 12:02] LABS: SARS-CoV-2 MS2 Positive; SARS-CoV-2 N Gene Negative; SARS-CoV-2 S Gene Negative; SARS-CoV-2 by NAA Not Detected (NotDetected); SARS-CoV-2 orf1ab Negative
[2020-03-26 14:44] VITALS: BMI 27.1
[2020-03-26] MEDS ORDERED: Labetalol HCl 100 MG/20 ML VIAL SLOW IVP PRN (15:57)
[2020-03-26] MEDS: Furosemide 40 MG/4 ML VIAL SLOW IVP SCH (16:48)
--- NOTE | 2020-03-26 18:20 | PDOC.HOSPP ---
- Subjective Subjective: 7 at best. Blood pressures remain elevated diuresed well seen any chest pain. Short of breath improved. - Objective Vital Signs & Weight: Vital Signs (12 hours) Temp Pulse Pulse Pulse Resp BP BP 03/26/20 17:02 64 03/26/20 13:31 172/75 H 189/77 H 03/26/20 11:48 97.9 F 64 16 03/26/20 10:00 68 84 174/79 H 140/71 03/26/20 09:45 98.6 F 62 18 BP Pulse Ox Pulse Ox 03/26/20 17:02 03/26/20 13:31 03/26/20 11:48 173/73 H 97 03/26/20 10:00 97 94 L 03/26/20 09:45 174/79 H 97 Weight Admit Weight 173 lb 1.6 oz Weight 173 lb 1.6 oz I&O: 03/25/20 03/26/20 03/27/20 06:59 06:59 06:59 Intake Total 760 Output Total 2450 Balance -1690 Result Diagrams: 03/26/20 11:20 03/26/20 11:20 Hospitalist ROS - Medication Medications: Active Medications Generic Name Dose Route Start Last Admin Trade Name Freq PRN Reason Stop Dose Admin Apixaban 5 mg 03/26/20 09:00 03/26/20 10:24 Apixaban 5 Mg Tab PO 5 mg BID TRISHA Administration Flecainide Acetate 50 mg 03/26/20 09:00 03/26/20 10:24 Flecainide 50 Mg Tab PO 50 mg BID TRISHA Administration Furosemide 40 mg 03/26/20 14:00 03/26/20 16:48 Furosemide 40 Mg/4 Ml Vial SLOW IVP 40 mg 0600,1400 TRISHA Administration Labetalol HCl 20 mg 03/26/20 15:57 03/26/20 16:48 Labetalol Hcl 100 Mg/20 Ml Vial SLOW IVP 20 mg Q4H PRN Administration Blood Pressure - Exam General Appearance: NAD, awake alert Eye: anicteric sclera ENT: normocephalic atraumatic Neck: supple Heart: RRR, no murmur Respiratory: CTAB, no rales Gastrointestinal: soft Neurological: cranial nerve grossly intact Musculoskeletal: normal tone Psychiatric: normal affect, normal behavior, A&O x 3 Hosp A/P - Plan This is a pleasant 79 years old female who has significant past medical history of chronic diastolic heart failure, hypertension, paroxysmal atrial fib on Eliquis for stroke prophylaxis, status post pacemaker placement who presented to the ED with complaint of chest discomfort and worsening dyspnea. Acute on chronic diastolic heart failure-likely secondary to uncontrolled hypertension --cont IV diuresis, monitor I&O and daily weight, replace lytes prn --BP control --follow echo. Serial enzymes negative, TSH wnl Accelerated hypertension --BP still elevated. Incr Lisinopril to 40 mg daily and Hydralazine to 50 mg TID --start BB Paroxysmal atrial fib with status post pacemaker replacement --cont BB/Eliquis Chest discomfort --serial enzymes negative, Echo pending, likely d/t above.
[2020-03-26] MEDS: hydrALAZINE 25 MG TAB PO SCH (20:12)
[2020-03-26] MEDS: Carvedilol 3.125 MG TAB PO SCH (20:14)
[2020-03-26] MEDS ORDERED: Lisinopril 20 MG TAB PO SCH ×2 (21:00)
[2020-03-26] MEDS ORDERED: Non-Formulary Item 1 EACH (Cholecalciferol (Vitamin D3) [Vitamin D] 1000 UNIT Capsule) PO SCH (21:00)
[2020-03-26] MEDS ORDERED: Cholecalciferol 1,000 UNITS (25 MCG) TAB PO SCH (21:00)
[2020-03-26] MEDS ORDERED: Aspirin Chewable 81 MG TAB PO SCH (21:00)
[2020-03-27] MEDS: Furosemide 40 MG/4 ML VIAL SLOW IVP SCH ×3 (05:08→14:01)
[2020-03-27] MEDS: Apixaban 5 MG TAB PO SCH (09:14)
[2020-03-27] MEDS: Flecainide 50 MG TAB PO SCH (09:14)
[2020-03-27] MEDS: Carvedilol 3.125 MG TAB PO SCH (09:14)
[2020-03-27] MEDS: hydrALAZINE 25 MG TAB PO SCH ×2 (09:14→14:00)
[2020-03-27 11:42] VITALS: TEMP 97.9
[2020-03-27 12:10] VITALS: BP 138/70
--- NOTE | 2020-03-27 14:10 | DIS ---
DATE OF ADMISSION: 03/25/2020 DATE OF DISCHARGE: 03/27/2020 DISCHARGE DIAGNOSES: 1. Acute on chronic diastolic heart failure, likely secondary to uncontrolled hypertension. 2. Accelerated hypertension. 3. Paroxysmal atrial fibrillation with status post pacemaker placement, on Eliquis for stroke prophylaxis. 4. Chest discomfort, resolved. CONSULTATIONS: None. LABORATORY DATA AND IMAGING STUDY: WBC 5.6, hemoglobin 11.3, platelet 302. Chemistry; sodium 133, potassium 3.6, chloride 98, carbon dioxide 26, BUN 11, creatinine is 0.8. BNP 588. LDL 73. COVID PCR was negative. Moderate left lower effusion with adjacent atelectasis versus infiltrate. CTA; no evidence of PE, bilateral pleural effusions, left larger than the right. HISTORY OF PRESENT ILLNESS AND BRIEF HOSPITAL COURSE: The patient is a pleasant 79-year-old female, who has significant past medical history of chronic diastolic heart failure, hypertension, paroxysmal atrial fib, on Eliquis, who presented to the ED with complaint of worsening dyspnea. Initial workup in the ED, found the patient in acute CHF exacerbation. Her BNP was elevated at 935. CTA of the chest was done, negative for PE. The patient was subsequently admitted to hospitalist service for further IV diuresis. The patient was monitored on tele. Troponins negative x3. She has been diuresing well. The patient was found to have uncontrolled hypertension. We have adjusted her home medication. We added beta christopher at low dose 3.125 mg b.i.d. and also increased her hydralazine to 50 mg t.i.d. and lisinopril to 40 mg daily. The patient appeared to be responded well. She has been saturating well on room air. Her blood pressure was 143/66 at the time of discharge. She is feeling well and requests to be discharged home. The patient was seen by PT, recommend inpatient rehab. However, the patient is adamant about going home with home health and home PT. Case management was consulted to arrange home health and home PT. The patient was advised to follow up with her PCP in 1 to 2 weeks and follow up with her emergency management specialist in two weeks. DIET: Low salt, 2 g sodium diet. DISPOSITION: The patient is stable to discharge home with home health. PHYSICAL EXAMINATION: VITAL SIGNS: Temperature is 97.9, pulse 66, respiratory rate 18, she is saturating 97% on room air, blood pressure 143/66. GENERAL APPEARANCE: The patient is alert and oriented x3 with normal affect. She is not in acute distress. HEENT: Normocephalic, atraumatic. Mucous membranes moist. NECK: Supple. No lymphadenopathy. No JVD. CARDIOVASCULAR: Regular rate and rhythm. S1 and S2 noted. No murmur. PULMONOLOGY: Clear to auscultation bilaterally. ABDOMEN: Soft, nontender, nondistended. Positive bowel sounds. MUSCULOSKELETAL: There is no joint pain, tenderness. No lower extremity edema. Skin intact. NEUROLOGIC: Cranial nerves 2 through 12 grossly intact. No focal weakness. PSYCHIATRIC: The patient is alert, oriented x3 with normal affect. DISCHARGE MEDICATIONS: New prescriptions: 1. Carvedilol 3.125 mg b.i.d. 2. Hydralazine was increased from 25 mg to 50 mg t.i.d. 3. Lisinopril 20 mg was increased to 40 mg daily. She will continue all the home medications including; 1. Aspirin 81 mg p.o. daily. 2. Flecainide 50 mg b.i.d. 3. Furosemide 40 mg p.o. daily. 4. Multivitamin supplement. 5. Vitamin D3 supplement. 6. Eliquis 5 mg b.i.d. FOLLOWUP CARE: The patient to follow up with her PCP and Cardiology in two weeks, she will need to recheck her blood pressure and titrate her medication appropriately. Discharge time spent, 35 minutes. Job ID: [id number]
== END 2020-03-27 15:48 | disposition home health service (06) | DRG 292 ==
LOC: ERS 14:56 → 2NO 22:05
PROVIDERS: ADMIT Internal Medicine; ATTEND Internal Medicine
DX: I11.0 Hypertensive heart disease with heart failure (principal); J98.11 Atelectasis; I48.0 Paroxysmal atrial fibrillation; Z20.828 Contact with and (suspected) exposure to other viral communicable diseases; F41.9 Anxiety disorder, unspecified; F32.9 Major depressive disorder, single episode, unspecified; I71.2 Thoracic aortic aneurysm, without rupture; I50.33 Acute on chronic diastolic (congestive) heart failure; I16.0 Hypertensive urgency; Z79.01 Long term (current) use of anticoagulants; Z95.0 Presence of cardiac pacemaker; Z98.51 Tubal ligation status; Z87.891 Personal history of nicotine dependence; I25.2 Old myocardial infarction
CPT/HCPCS: 36415; 71045; 71275; 80048; 80053; 80061; 81003; 81015; 82550; 83690; 83735; 83880; 84443; 84484; 85025; 85379; 87635; 93005; 93306; 93798; 94760; 96374; 96375; J1940; Q9967; U0003

== ENCOUNTER 2020-04-30 12:23 | Outpatient (CLI) | payer MEDICARE, OTHER ==
--- NOTE | 2020-04-30 13:23 | CT ---
Head CT without contrast 04/30/2020: COMPARISON: 02/04/2020 HISTORY: Left-sided headache and body pain with weakness TECHNIQUE: Axial CT imaging at 5 mm intervals from vertex through skull base without contrast FINDINGS: The visualized paranasal sinuses and mastoid air cells are well-aerated. No displaced humberto rial fracture. There is atherosclerotic calcification involving the distal vertebral arteries. There is stable multi focal periventricular hypodensity, evidence of small vessel disease. There is significant stable cerebral volume loss. No intracranial hemorrhage, midline shift, or mass effect. IMPRESSION: Chronic findings as detailed above, stable when compared to the prior examination. No int racranial hemorrhage.
== END 2020-04-30 12:24 | disposition home or self-care (01) ==
LOC: CT 12:23
PROVIDERS: ATTEND Internal Medicine Cardiovascular Disease
DX: R51.9 Headache, unspecified (principal); I65.03 Occlusion and stenosis of bilateral vertebral arteries; G93.89 Other specified disorders of brain
CPT/HCPCS: 70450